=== PATIENT | female | born 1935 | race Caucasian/White ===

== ENCOUNTER 2016-08-26 12:48 | Inpatient (IN) | payer MEDICARE, OTHER ==
[~2016-08-26] VITALS: Ht 170.2 cm; Wt 64.2 kg
[2016-08-26 13:25] VITALS: BP 138/78; BMI 21.8
--- NOTE | 2016-08-26 14:16 | NUR ---
PT ADMITTED. I ATTEMPTED TO SITE PT X1 STICK. ROBIN ATTEMPTED TO SITE X4 STICK. CALLED VASCULAR NURSE SANGEETA TO SITE PT.
--- NOTE | 2016-08-26 14:38 | NUR ---
IV access-22 gauge in right hand for IV access. Zuleyma Bennett RN
[2016-08-26 14:40] LABS: ANION GAP 9.7 mmol/L (8-16); BILIRUBIN - DIRECT 0.11 mg/dL (0.00-0.30); BILIRUBIN - INDIRECT 0.28 mg/dL (0.00-1.00); BILIRUBIN - TOTAL 0.39 mg/dL (0.2-1.3); CALCIUM 8.9 mg/dL (8.5-10.1); CARBON DIOXIDE 31.6 mmol/L (21.0-32.0); CREATININE - SERUM 0.9 mg/dL (0.6-1.3); POTASSIUM - SERUM 3.3 mmol/L (3.5-5.1); PROTEIN - SERUM 7.1 g/dL (6.4-8.2)
[2016-08-26 15:06] LABS: BASOPHILS 0.3 % (0.0-2.0); EOSINOPHILS 0.1 % (0-7); HEMATOCRIT 40.3 % (36.0-48.0); HEMOGLOBIN 12.7 g/dL (12-16); IMMATURE GRANULOCYTES 0.1 % (0-5); LYMPHOCYTES 17.2 % (15-50); MCH 28.8 pg (26.0-34.0); MCHC 31.5 g/dL (31.0-37.0); MCV 91.4 fL (80.0-100.0); MEAN PLATELET VOLUME 10.7 fL (7.4-10.4); MONOCYTES 14.9 % (2-11); NEUTROPHILS 67.4 % (40-80); PLATELET COUNT 251 10x3/uL (130-400); RBC 4.41 10x6/uL (4.00-5.40); WBC 7.4 10x3/uL (4.8-10.8)
--- NOTE | 2016-08-26 15:07 | NUR ---
SANGEETA QUICK NURSE SITED PT TO R HAND. FLUIDS WERE WRITTEN WITH ADMIT ORDERS NS @88ML/HR. I HAVE THEM HANGING AND INFUSING NOW. PHARMACY HAS STILL NOT PUT IN PT MEDICATIONS THAT HAVE BEEN ORDERED.
[2016-08-26 15:58] VITALS: BP 124/56
[2016-08-26] MEDS ORDERED: NORVASC5 MG PO (17:41)
[2016-08-26] MEDS ORDERED: COREG 3.1253.125 MG PO (17:42)
[2016-08-26] MEDS ORDERED: KEPPRA500 MG PO (17:42)
[2016-08-26] MEDS ORDERED: ZOLOFT50 MG PO (17:42)
[2016-08-26] MEDS ORDERED: TENORETIC 50 TA1 TAB PO (17:42)
--- NOTE | 2016-08-26 17:42 | NUR ---
Patient Name: LIA GREER Admission Status: Urgent Accout number: [id number] Admission Date: 08-26-2016 : 1935 Admission Diagnosis: Attending: ALVA Current LOS: 1 Anticipated DC Date: Planned Disposition: Primary Insurance: MEDICARE A & B Discharge Planning Comments: CM met with patient and patient's daughter "Maki" ([phone]) at bedside. Patient states she resides in her own two story home. She has 13 stairs but also a lift so she does not use stairs. Daughter also states she has a walker, cane, shower chair, BCS and needs no additional DME supplies. Patient's daughter states she has [facility] in addition to various family members for round the clock care at home. Patient's daughter also stated the patient has recently completed her home health per services of [facility]. Both the patient and daughter state her home is safe to return to. The patient's daughter "Maki Mcbride" ([phone]) will be her transportation home. CM will follow and assist with discharge plans/needs. Room Cooler Installer: Octavia Hernandez RN/CM * Is the patient Alert and Oriented? Yes 0 * How many steps to enter\\exit or inside your home? 13 + LIFT 0 * PCP DEE 0 * [facility] [phone] 0 * Preadmission Environment Home with Family 0 * ADLs Partial Dependent 0 * Partial ADLs (Assistance needed) Ambulation Medication Management 0 * Equipment Bedside Commode Cane Elevated [place] Seat Shower Chair Walker 0 * List name and contact numbers for known caregivers / representatives who currently or will assist patient after discharge: Maki Mcbride (daughter) ([phone]) Ross Horton (son) ([phone]) 0 * Community resources currently utilized Other 0 * Please name any agencies selected above. [facility] (Previously used [facility]) 0 * Additional services required to return to the preadmission environment? No 0 * Can the patient safely return to the preadmission environment? Yes 0 * Has this patient been hospitalized within the prior 30 days at any hospital? Yes 0
[2016-08-26 19:48] VITALS: BP 136/70
--- NOTE | 2016-08-26 19:55 | NUR ---
ASSESSMENT COMPELTE, A&O, DENIES PAIN OR NEEDS, BED LOW, CL IN REACH.
--- NOTE | 2016-08-26 21:32 | NUR ---
HS MEDS GIVEN, PT DENIES PAIN OR NEEDS, BED LOW, CL IN REACH. UP WITH ASSIST TO BR.
--- NOTE | 2016-08-26 21:50 | NUR ---
STOOL SPECIMEN COLLECTED AND TAKEN TO LAB.
--- NOTE | 2016-08-26 23:25 | NUR ---
LAB RESULTED NEGATIVE RESULTS FOR CDT.
[2016-08-27 00:47] VITALS: BP 142/71
[2016-08-27 03:41] VITALS: BP 147/80
[2016-08-27 05:18] LABS: BASOPHILS 0.2 % (0.0-2.0); EOSINOPHILS 1.3 % (0-7); HEMATOCRIT 36.4 % (36.0-48.0); HEMOGLOBIN 11.3 g/dL (12-16); IMMATURE GRANULOCYTES 0.4 % (0-5); LYMPHOCYTES 22.5 % (15-50); MCH 28.3 pg (26.0-34.0); MCV 91.2 fL (80.0-100.0); MEAN PLATELET VOLUME 10.2 fL (7.4-10.4); MONOCYTES 21.2 % (2-11); NEUTROPHILS 54.4 % (40-80); PLATELET COUNT 217 10x3/uL (130-400); RBC 3.99 10x6/uL (4.00-5.40); RDW 16.1 % (11.5-14.5)
[2016-08-27 05:23] LABS: WBC 5.5 10x3/uL (4.8-10.8)
[2016-08-27 05:38] LABS: ALBUMIN 2.5 g/dL (3.4-5.0); BILIRUBIN - TOTAL 0.28 mg/dL (0.2-1.3); CALCIUM 8.5 mg/dL (8.5-10.1); CREATININE - SERUM 0.8 mg/dL (0.6-1.3); PROTEIN - SERUM 6.3 g/dL (6.4-8.2)
[2016-08-27 08:16] VITALS: BP 121/70
--- NOTE | 2016-08-27 10:43 | NUR ---
PT WAS OFFERED AND REFUSED SCDS. PT DOES GET UP WITH ASSISTANCE TO BR. TEACHING DONE AND PT VERBALIZED UNDERSTANDING. NO FURTHER NEEDS. WILL CPOC.
[2016-08-27 12:21] VITALS: BP 130/70
--- NOTE | 2016-08-27 15:41 | NUR ---
INITIATED PTS IVPB FLAGYL INFUSING VIA R.WRIST PIV WITH DRSG CDI AND SWAB CAPS IN USE. PT IS VISITING FAMILY IN ROOM. RR NONLABORED ON RA. PT DENIES ANY CURRENT PAIN OR FURTHER NEEDS. CL IN REACH. WILL CTM.
[2016-08-27 15:53] VITALS: BP 136/70; BP 154/76
--- NOTE | 2016-08-27 18:41 | NUR ---
IN/OUT CATH PERFORMED USING STERILE TECHNIQUE. SPECIMEN COLLECTED AND SENT TO LAB.
[2016-08-27 18:48] LABS: APPEARANCE CLOUDY (CLEAR); BILIRUBIN NEGATIVE (NEGATIVE); COLOR YELLOW (YELLOW); GLUCOSE NEGATIVE (NEGATIVE); KETONE NEGATIVE (NEGATIVE); LEUKOCYTE ESTERASE TRACE (NEGATIVE); NITRITE POSITIVE (NEGATIVE); PROTEIN 2+ mg/dL (NEGATIVE); SPECIFIC GRAVITY 1.015 (1.005-1.020); UROBILINOGEN NORMAL (NORMAL)
[2016-08-27 18:52] LABS: BACTERIA MANY /hpf (NONE SEEN); EPITHELIAL CELLS 0-5 /hpf (0-5); RED CELLS - URINE 0-5 /hpf (0-5)
--- NOTE | 2016-08-27 19:20 | NUR ---
RECEIVED REPORT, CONTACT-ISO, IV-R WRIST-NS @ 88, A&O, UP WITH ASSIST, CALL LIGHT IN REACH, BED IS LOW, SRX2, WILL CONTINUE TO MONITOR
[2016-08-27 21:17] VITALS: BP 136/67
--- NOTE | 2016-08-28 00:33 | NUR ---
PT AWAKE; DENIES ANY DISCOMFORT. SR UP X2, CALL LIGHT WITHIN REACH.
[2016-08-28 02:01] VITALS: BP 151/67
[2016-08-28 05:48] VITALS: BP 144/69
[2016-08-28 06:24] LABS: BASOPHILS 0.7 % (0.0-2.0); EOSINOPHILS 1.5 % (0-7); HEMATOCRIT 34.7 % (36.0-48.0); HEMOGLOBIN 10.9 g/dL (12-16); LYMPHOCYTES 26.7 % (15-50); MCH 28.3 pg (26.0-34.0); MCHC 31.4 g/dL (31.0-37.0); MCV 90.1 fL (80.0-100.0); MEAN PLATELET VOLUME 10.5 fL (7.4-10.4); MONOCYTES 19.6 % (2-11); NEUTROPHILS 51.5 % (40-80); PLATELET COUNT 208 10x3/uL (130-400); RBC 3.85 10x6/uL (4.00-5.40); RDW 15.8 % (11.5-14.5); WBC 4.5 10x3/uL (4.8-10.8)
[2016-08-28 06:38] LABS: ALBUMIN 2.4 g/dL (3.4-5.0); ALKALINE PHOSPHATASE 55 U/L (46-116); ALT (SGPT) 16 U/L (10-68); CALC OSMOLALITY 276 mosm/kg (275-300); CALCIUM 8.5 mg/dL (8.5-10.1); CARBON DIOXIDE 28.4 mmol/L (21.0-32.0); CHLORIDE - SERUM 104 mmol/L (98-107); CREATININE - SERUM 0.7 mg/dL (0.6-1.3); GLUCOSE 88 mg/dL (74-106); PROTEIN - SERUM 5.9 g/dL (6.4-8.2); SODIUM 140 mmol/L (136-145); eGFR NON AFRICAN AMERICAN 85 mL/min (90-120)
[2016-08-28 06:39] LABS: UREA NITROGEN 10 mg/dL (7-18)
--- NOTE | 2016-08-28 08:30 | NUR ---
PT RESTING QUIETLY IN BED DRINKING BREAKFAST. RR NONLABORED ON RA. SHIFT ASSESSMENT COMPLETED. PT IS ALERT AND ORIENTED DENIES ANY CURRENT PAIN. INITIATED PTS IVPB ANBX INFUSING VIA R.WRIST PIV WITH DRSG CDI AND SWAB CAPS IN USE. PT DENIES ANY CURRENT PAIN OR FURTHER NEEDS. CL IN REACH. WILL CPOC.
[2016-08-28 08:44] VITALS: BP 147/74
[2016-08-28 13:13] VITALS: BP 146/79
[2016-08-28 17:01] VITALS: BP 161/82
--- NOTE | 2016-08-28 19:20 | NUR ---
RESUMED CARE OF PT, NEEDS CONSENT SIGNED FOR FLEX. SIG. WITH TIVA, IV-R.WRIST-NS@ 75, DENIES ANY NEEDS, CALL LIGHT IN REACH, BED IS LOW,SRX2, WILL CONTINUE TO MONITOR
[2016-08-28 21:30] VITALS: BP 156/83
--- NOTE | 2016-08-28 23:49 | NUR ---
REAL ESTATE TRANSACTION COORDINATOR AT BEDSIDE TO OBTAIN VITALS, CALL LIGHT IN REACH. WILL CONTINUE TO MONITOR.
[2016-08-29 00:45] VITALS: BP 151/76
--- NOTE | 2016-08-29 02:24 | NUR ---
SLEEPING, PT HAS BEEN NPO SINCE MIDNIGHT, BED IS LOW, SRX2, CALL LIGHT IN REACH
[2016-08-29 04:30] VITALS: BP 148/85
--- NOTE | 2016-08-29 07:36 | NUR ---
AM ROUNDING- PT IN BATHROOM CURRENTLY. UP AD HOLLY. IN CONTACT ISOLATION FOR C.DIFF. PER REPORT FROM TRAFFIC SURVEY TECHNICIAN NURSE MINH, PT HAD SOFT BM LAST NIGHT ON TRAFFIC SURVEY TECHNICIAN. ON ROOM AIR. NO MONITOR. IV SEEN TO RIGHT WRIST WITH NS RUNNING AT 75CC. PT IS NPO FOR PROCEDURE TODAY. CONSENTS ARE SIGNED AND IN CHART. PTS POTASSIUM IS 3.0 THIS AM, WILL LET DRChacho KNOW. NO NEED AT CURRENT TIME. WILL CONTINUE TO MONITOR.
[2016-08-29 08:00] VITALS: BP 151/81
[2016-08-29 08:46] LABS: BASOPHILS 1.7 % (0.0-2.0); EOSINOPHILS 1.2 % (0-7); HEMATOCRIT 37.6 % (36.0-48.0); HEMOGLOBIN 12.1 g/dL (12-16); IMMATURE GRANULOCYTES 0.2 % (0-5); LYMPHOCYTES 26.1 % (15-50); MCH 28.2 pg (26.0-34.0); MCHC 32.2 g/dL (31.0-37.0); MEAN PLATELET VOLUME 10.4 fL (7.4-10.4); MONOCYTES 15.3 % (2-11); NEUTROPHILS 55.5 % (40-80); PLATELET COUNT 219 10x3/uL (130-400); RBC 4.29 10x6/uL (4.00-5.40); RDW 15.4 % (11.5-14.5)
[2016-08-29 08:50] LABS: MCV 87.6 fL (80.0-100.0); WBC 6.6 10x3/uL (4.8-10.8)
[2016-08-29 08:55] LABS: ALBUMIN 2.6 g/dL (3.4-5.0); ALKALINE PHOSPHATASE 58 U/L (46-116); ALT (SGPT) 16 U/L (10-68); CALC OSMOLALITY 276 mosm/kg (275-300); CALCIUM 8.5 mg/dL (8.5-10.1); CARBON DIOXIDE 29.5 mmol/L (21.0-32.0); CHLORIDE - SERUM 104 mmol/L (98-107); CREATININE - SERUM 0.7 mg/dL (0.6-1.3); GLUCOSE 94 mg/dL (74-106); PROTEIN - SERUM 6.6 g/dL (6.4-8.2); SODIUM 140 mmol/L (136-145); UREA NITROGEN 8 mg/dL (7-18); eGFR NON AFRICAN AMERICAN 85 mL/min (90-120)
[2016-08-29 08:56] LABS: POTASSIUM - SERUM 3.6 mmol/L (3.5-5.1)
--- NOTE | 2016-08-29 09:18 | NUR ---
PAGED DR. ABDUL OFFICE TO INFORM HIM OF PTS POTASSIUM BEING 3.0. NURSE STATED SHE WOULD LET HIM KNOW. AWAITING CALLBACK.
[2016-08-29 12:00] VITALS: BP 148/77
--- NOTE | 2016-08-29 15:42 | NUR ---
GREGORIO FROM GI LAB CALLED TO STATE TO GO AHEAD AND PRE-OP PT WITH PEPCID. STATED I WOULD DO SO. GREGORIO FROM GI LAB STATED SHE WOULD BE HERE IN 30 MINUTES OR SO. WILL CONTINUE TO MONITOR.
--- NOTE | 2016-08-29 15:58 | NUR ---
GAVE PT PRE-OP MEDICAION ORDERED (PEPCID). WILL CONTINUE TO MONITOR.
[2016-08-29 16:00] VITALS: BP 152/80
--- NOTE | 2016-08-29 16:19 | NUR ---
GREGORIO FROM GI LAB, HERE TO GET PT FOR PROCEDURE.
--- NOTE | 2016-08-29 16:46 | NUR ---
1620- PT TO LAB VIA WHEELCHAIR.
--- NOTE | 2016-08-29 18:03 | NUR ---
PT IS CURRENTLY STILL AT GI LAB FOR PROCEDURE.
--- NOTE | 2016-08-29 18:12 | NUR ---
TALKED TO GREGORIO FROM GI LAB STATED PT IS COMING BACK TO UNIT AND CAN RESUME REGULAR DIET. AWAITING PT TO ARRIVE.
--- NOTE | 2016-08-29 18:39 | NUR ---
1830- PT BACK FROM PROCEDURE (GI LAB) VIA STRETCHER. GI LAB STATED THAT PT CAN BE TAKEN OFF ISOLATION. WILL CONTINUE TO MONITOR.
--- NOTE | 2016-08-29 19:15 | NUR ---
RESTING QUIETLY NAD NOTED
--- NOTE | 2016-08-29 19:30 | NUR ---
RECEIVED REPORT, PT EATING DINNER, 02-ROOM AIR, IV-R.WRIST-NS@ 88, DENIES ANY NEEDS, CALL LIGHT IN REACH, BED IS LOW, SRX2, WILL CONTINUE TO MONITOR
[2016-08-29 20:03] VITALS: BP 144/79
[2016-08-30 01:37] VITALS: BP 137/78
--- NOTE | 2016-08-30 03:49 | NUR ---
SLEEPING, SRX2, CALL LIGHT IN REACH, BED IS LOW, WILL CONTINUE TO MONITOR
[2016-08-30 04:19] VITALS: BP 159/85
[2016-08-30 05:14] LABS: BASOPHILS 0.6 % (0.0-2.0); EOSINOPHILS 0.7 % (0-7); HEMATOCRIT 35.3 % (36.0-48.0); HEMOGLOBIN 11.4 g/dL (12-16); IMMATURE GRANULOCYTES 0.2 % (0-5); LYMPHOCYTES 22.6 % (15-50); MCH 28.5 pg (26.0-34.0); MCHC 32.3 g/dL (31.0-37.0); MCV 88.3 fL (80.0-100.0); MEAN PLATELET VOLUME 9.9 fL (7.4-10.4); MONOCYTES 10.4 % (2-11); NEUTROPHILS 65.5 % (40-80); PLATELET COUNT 202 10x3/uL (130-400); RDW 15.3 % (11.5-14.5)
--- NOTE | 2016-08-30 05:19 | NUR ---
R.WRIST IV REMOVED, IV RESTARTED IN R.FOREARM, PT DENIES ANY NEEDS AT THIS TIME, CALL LIGHT IN REACH
[2016-08-30 05:23] LABS: WBC 8.3 10x3/uL (4.8-10.8)
[2016-08-30 05:33] LABS: ALBUMIN 2.5 g/dL (3.4-5.0); BILIRUBIN - TOTAL 0.5 mg/dL (0.2-1.3); CALCIUM 8.3 mg/dL (8.5-10.1); CARBON DIOXIDE 29.4 mmol/L (21.0-32.0); PROTEIN - SERUM 6.5 g/dL (6.4-8.2)
[2016-08-30 05:49] LABS: ANION GAP 10.3 mmol/L (8-16); CREATININE - SERUM 0.9 mg/dL (0.6-1.3); POTASSIUM - SERUM 2.7 mmol/L (3.5-5.1)
--- NOTE | 2016-08-30 05:58 | NUR ---
RECIEVED CRITICAL LAB FROM GALLO IN LAB, K+ 2.7, NOTIFIED MINH VANCE.
--- NOTE | 2016-08-30 07:41 | HP ---
PATIENT: LIA GREER MEDICAL RECORD: [id number] ACCOUNT: [id number] LOCATION:[facility] D.2137 : 35 ADMISSION DATE: 08/26/16 HISTORY AND PHYSICAL EXAMINATION HISTORY OF PRESENT ILLNESS: An 81-year-old female who presented to the ER last night with persistent nausea and vomiting, had extensive findings on the CT, was afebrile with a normal white count, was discharged to home. She has a history of recurrent C. diff. She is on oral vancomycin 30-day period at home. Daughter reports she is unable to keep anything down and has thrown up twice today. PAST MEDICAL HISTORY: Significant for hypertension, overactive bladder, anxiety, hyperlipidemia, UTIs and unclear history of seizure disorder. She has been placed on antiepileptics by neurologist from [facility]. ALLERGIES: CORTISONE. CURRENT MEDICATIONS: Amlodipine 5 mg daily, carvedilol 3.125 mg b.i.d., levetiracetam 500 mg b.i.d., sertraline 50 mg daily, Toviaz 4 mg daily and oral vancomycin 250 mg p.o. q.i.d. FAMILY HISTORY: Father, blood clot in the brain. Mother at age 97 of old age. SOCIAL HISTORY: Never smoked. Twelfth grade education. Rare wine. PAST SURGICAL HISTORY: Knee replacement, left; cholecystectomy, appendectomy and hysterectomy. REVIEW OF SYSTEMS: GENERAL: Loss of appetite with the illness that has been progressive for the past several days, progressively worse, known weight loss, she is down to 139 pounds. This is down from recent visits. HEENT: Denies tinnitus, visual changes. Denies dysphagia. CARDIOVASCULAR: Denies chest pain or palpitations. PULMONARY: Denies hemoptysis. Denies night sweats. GASTROINTESTINAL: Admits nausea, vomiting and diarrhea. History as above. GENITOURINARY: Admits to frequency, although decreased output. MUSCULOSKELETAL: No acute changes other than generalized weakness with the acute illness. ENDOCRINE: Denies polyuria, polydipsia, or polyphagia. IMAGING: CT from yesterday at [facility] shows fluid filling of small bowel to a lesser degree proximal colon, no prominent distention, suggestive of ileus or enteritis, distal colonic diverticulosis, also some haziness around the proximal sigmoid colon that could represent residual diverticulitis, left ovarian cyst approximately 3 cm, 2.8 cm abdominal aortic aneurysm, bilateral renal cysts, question of thickening of the left renal pelvis that could represent an infectious process or less likely residual from opacity of stone, and question of bladder wall thickening, which could represent an infectious process. PHYSICAL EXAMINATION: VITAL SIGNS: Weight 139. Blood pressure is 138/86, heart rate 72, respirations HISTORY AND PHYSICAL [id number] ZOEY,LIA G 18 and temperature 97.8. GENERAL: Alert, oriented. Generalized weakness, limited ambulation with assistance. HEENT: Normocephalic and atraumatic. Eyes: Pupils are equally round and reactive to light and accommodation. Extraocular muscles are intact. Conjunctivae not injected. Ears: Canals are patent, TMs are intact. Nose: Nares patent without drainage. Throat: No erythema, no exudates. NECK: Supple. No lymphadenopathy. No JVD. HEART: Regular rate and rhythm. LUNGS: Clear to auscultation bilaterally. Breathing is nonlabored. ABDOMEN: Soft, nontender, with mild diffuse tenderness, greater at the left lower quadrant. No rebound or guarding. No palpable masses. EXTREMITIES: Present times 4. No edema. NEUROLOGIC: No focal deficits, somewhat limited historian, family present. ASSESSMENT AND PLAN: Acute diverticulitis, urinary tract infection with CT changes as noted above, history of Clostridium difficile colitis, nausea, vomiting, diarrhea, hypertension and seizure disorder. Home meds were restarted. IV fluids with normal saline at 88 mL an hour liters. Clear liquid diet. Stool for C. diff. UA, urine C&S records from [facility] ER to chart. CBC, chemistry, LFTs, amylase and lipase on admission. We will consult GI, Dr. Perez, who had seen her before. Consult infectious disease, Dr. Mckeon. Continue vancomycin 250 mg p.o. q.i.d. and Zofran 4 mg IV q.6 hours p.r.n. nausea and vomiting. Routine vital signs. Supportive care. TRANSINT:[id number] Voice Confirmation ID: [id number] DOCUMENT ID: [id number] STEPHANIE PRICE DO at 0741 CC: [id number] DICTATION DATE: 08/26/16 1602 CAMERA STORAGE CLERK: 08/26/16 1819 ADM IN [facility] [address] [id number]
[2016-08-30 08:06] VITALS: BP 150/88
[2016-08-30 11:22] VITALS: Ht 170.2 cm; Wt 64.2 kg
[2016-08-30 12:01] VITALS: BP 161/81
[2016-08-30 16:14] VITALS: BP 153/82
--- NOTE | 2016-08-30 17:59 | OP ---
PATIENT NAME: LIA SHOOK MEDICAL RECORD: [id number] :35 LOCATION:D.M2 D.2137 ADMISSION DATE:08/26/16 SURGEON: BUZZ ZAMORANO MD DATE OF OPERATION: 08/29/2016 PROCEDURE: Flexible sigmoidoscopy with biopsy. ATTENDING PHYSICIAN: Dio Degroot DO INFECTIOUS DISEASE: Courtney Mckeon MD INDICATIONS: Ms. Shook is a pleasant 81-year-old woman with a history of Clostridium difficile with frequent recurrences in the past, was admitted secondary to symptoms of nausea, vomiting, diarrhea and abdominal pain. Her stool for CDT is negative. She has been empirically started on IV Flagyl and oral vancomycin. Shortly after admission, her nausea, vomiting, diarrhea has ceased. She presents for inpatient flexible sigmoidoscopy. PREMEDICATIONS: Total IV anesthesia (propofol 80 mg). INSTRUMENT: Olympus video colonoscope. PROCEDURE AND FINDINGS: After receiving informed consent, Ms. Shook was placed in left lateral decubitus position and sedated as per anesthesia. After achieving adequate level of sedation, digital rectal exam was performed that showed no external hemorrhoidal tags, fissures or fistulas, decreased sphincter tone, no palpable rectal masses. The colonoscope was introduced per rectally and advanced to 40 cm without difficulty. There was thick liquid stool scattered throughout the left colon. There were no pseudomembranes noted. There was minimal patchy erythema in the sigmoid colon and biopsies were obtained. Multiple diverticula were seen scattered throughout the sigmoid colon, but no particular diverticulum appeared inflamed. Retroflexion in the rectum showed moderate internal hemorrhoids. Ms. Shook tolerated the procedure well, no immediate complications. ASSESSMENT: 1. Minimal nonspecific colitis may be prep related, status post sigmoid biopsy. 2. Moderate diverticulosis coli. 3. Moderate internal hemorrhoids. RECOMMENDATIONS: 1. Follow up histopathology. 2. Advance diet. TRANSINT:[id number] Voice Confirmation ID: [id number] DOCUMENT ID: [id number] BUZZ ZAMORANO MD at 1754 CC: STEPHANIE PRICE DO [id number] DICTATION DATE: 08/29/16 1808 SLOT OPERATIONS MANAGER: 08/29/16 [place] [address]
--- NOTE | 2016-08-30 19:44 | NUR ---
RESUMED CARE OF PT, IV-RFA-NS@ 75, PT WATCHING TV, DENIES ANY NEEDS, CALL LIGHT IN REACH, WILL CONTINUE TO MONITOR
--- NOTE | 2016-08-30 19:52 | NUR ---
Rehab Note- Rehab Prescreen Order Received. Will follow patient at this time. Thank you for this referral! Joanna Zepeda RN Clinical Liaison, Rehab Care/Jane
[2016-08-30 20:09] VITALS: BP 156/81
[2016-08-31 01:22] VITALS: BP 170/90
[2016-08-31 05:29] LABS: BASOPHILS 0.3 % (0.0-2.0); EOSINOPHILS 1.9 % (0-7); HEMATOCRIT 35.5 % (36.0-48.0); HEMOGLOBIN 11.3 g/dL (12-16); IMMATURE GRANULOCYTES 0.1 % (0-5); LYMPHOCYTES 21.3 % (15-50); MCH 28.1 pg (26.0-34.0); MCHC 31.8 g/dL (31.0-37.0); MCV 88.3 fL (80.0-100.0); MEAN PLATELET VOLUME 10.1 fL (7.4-10.4); MONOCYTES 12.9 % (2-11); NEUTROPHILS 63.5 % (40-80); PLATELET COUNT 202 10x3/uL (130-400); RBC 4.02 10x6/uL (4.00-5.40); RDW 15.5 % (11.5-14.5); WBC 7.9 10x3/uL (4.8-10.8)
[2016-08-31 05:31] LABS: CALC OSMOLALITY 279 mosm/kg (275-300); CARBON DIOXIDE 29.5 mmol/L (21.0-32.0); CHLORIDE - SERUM 105 mmol/L (98-107); CREATININE - SERUM 0.7 mg/dL (0.6-1.3); GLUCOSE 104 mg/dL (74-106); SODIUM 141 mmol/L (136-145); UREA NITROGEN 10 mg/dL (7-18); eGFR NON AFRICAN AMERICAN 85 mL/min (90-120)
[2016-08-31 05:56] LABS: POTASSIUM - SERUM 2.9 mmol/L (3.5-5.1)
[2016-08-31 06:27] VITALS: BP 148/82
--- NOTE | 2016-08-31 07:45 | NUR ---
PT RECEIVED AWAKE, ALERT, AND ORIENTED, SITTING UP IN BED EATING BREAKFAST. NO ACUTE DISTRESS NOTED AT THIS TIME. DENIES NEEDS AT THIS TIME. BED LOW. PHONE AND CALL LIGHT IN REACH. SIDE RAILS UP X2.
[2016-08-31] MEDS ORDERED: FLORAJEN3 CAPS460 MG PO (07:50)
[2016-08-31] MEDS ORDERED: VANCOMYCIN250 MG/51 PO (07:51)
[2016-08-31] MEDS ORDERED: FLAGYL500 MG PO (07:52)
[2016-08-31] MEDS ORDERED: MAG-OX 400 MG400 MG PO (07:53)
[2016-08-31] MEDS ORDERED: KLOR-CON 1010 MEQ PO (07:54)
[2016-08-31 08:00] VITALS: BP 146/86
--- NOTE | 2016-08-31 08:05 | NUR ---
PT SITTING UP IN BED AWAKE, ALERT, AND ORIENTED. ADMINISTERED KCL 20 MEQ PER ORDERS MIXED WITH ORANGE JUICE AND COREG PO. ASSESSMENT COMPLETED. IV NOTED TO RIGHT FOREARM INFUSING NS @ 75 CC/HR. PATENT. K+ 2.9 @ 0600. HEART RRR. LUNG SOUNDS CLEAR BILATERALLY. BOWEL SOUNDS ACTIVE X4 QUADRENTS. PT DENIES NEEDS AT THIS TIME. BED LOW. PHONE AND CALL LIGHT IN REACH. SRX2.
--- NOTE | 2016-08-31 09:54 | NUR ---
AM MEDS GIVEN. PT REQUESTS ICE WATER. DENIES OTHER NEEDS AT THIS TIME. BED LOW. PHONE AND CALL LIGHT IN REACH. SIDE RAILS UP X2.
--- NOTE | 2016-08-31 10:15 | NUR ---
PT SITTING UP IN BED WATCHING TV. ADMINISTERED KCL 20 MEQ SOLUTION MIXED WITH APPLE JUICE. PT DENIES NEEDS AT THIS TIME. BED LOW. PHONE AND CALL LIGHT IN REACH. SIDE RAILS UP X2.
--- NOTE | 2016-08-31 10:35 | NUR ---
ADMINISTERED KCL 20 MEQ PER ORDERS. ORDERED POTASSIUM LAB FOR 1400 PER ORDERS. WILL CONTINUE TO MONITOR PT
--- NOTE | 2016-08-31 10:57 | NUR ---
PT SITTING UP IN BED. ADMINSITERED SARAH BAILEY. PT STATES SHE FEELS LIKE SHE WET HERSELF AND THE BED . ASSISTED PT TO CHAIR AND CHANGED GOWN, BED LINENS, AND BRIEF. ASSISTED PT TO RESTROOM TO VOID AND THEN BACK TO THE CHAIR. DENIES NEEDS AT THIS TIME. BED LOW. PHONE AND CALL LIGHT IN REACH. SIDE RAILS UP X2.
--- NOTE | 2016-08-31 11:03 | NUR ---
Reviewed patient's chart this AM for inpatient rehab. According to the PT notes she is able to ambulate with little to no assistance. She is to high functioning for acute inpatient rehab at this time. Liz Aggarwal RN Clinical Liaison, Rehab
--- NOTE | 2016-08-31 11:32 | NUR ---
Patient Name: LIA GREER Encounter No: [id number] : 1935 Primary Insurance: MEDICARE A & B Anticipated DC Date: 08-31-2016 Planned Disposition: Inpatient Rehab External Planned Provider: [facility] DCP follow-up note: CM SPOKE TO PT IN ROOM TO DISCUSS DISCHARGE PLANNING AND NEEDS. PT IS STILL REQUESTING INPATIENT REHAB AT [facility]. IF DENIED INPATIENT, PT WOULD LIKE TO GO HOME WITH [facility]. IMPORTANT MESSAGE FROM MEDICARE PROVIDED AND EXPLAINED. CM CALLED AND SPOKE TO ROYA OF [facility] WHO WILL SCREEN PT FOR ADMISSION. CM WAITING ADMISSION DETERMINATION FROM [facility]. Osmin Rene, CASE MANAGEMENT
[2016-08-31 11:42] VITALS: BP 140/80
--- NOTE | 2016-08-31 12:32 | NUR ---
PT REQUESTED TO GET BACK IN BED AND ASKED FOR ANOTHER PILLOW. ASSISTED PT BACK TO BED AND PLACED EXTRA PILLOW BEHIND PTS HEAD. DENIES FURTHER NEEDS. BED LOW. PHONE AND CALL LIGHT IN REACH. SIDE RAILS UP X2.
--- NOTE | 2016-08-31 12:38 | NUR ---
PT C/O OF RIGHT ANKLE HURTING. RIGHT ANKLE SLIGHTLY SWOLLEN AND TENDER, APPLIED ICE PACK TO RIGHT ANKLE. DENIES OTHER NEEDS. BED LOW. PHONE AND CALL LIGHT IN REACH. SIDE RAILS UP X2.
--- NOTE | 2016-08-31 12:47 | NUR ---
Patient Name: LIA GREER Encounter No: [id number] : 1935 Primary Insurance: MEDICARE A & B Anticipated DC Date: 08-31-2016 Planned Disposition: Home with Home Health External Planned Provider: better. [facility] DCP follow-up note: CM RECEIVED MESSAGE FROM [facility] INPATIENT REHAB SCREENER, PT WAS DECLINED BY INPATIENT REHAB. CM SPOKE TO PT IN ROOM WHO REPORTS THAT SHE WILL GO HOME WITH [facility]. CM DISCUSSED PENITENTIARY REHAB, PT REPORTS SHE HAS BEEN TO A FACILITY IN THE PAST AND DOES NOT WANT TO GO BACK AT THIS TIME. PT FEELS SHE IS SAFE TO GO HOME WITH HOME HEALTH THERAPY AND REPORTS HER GRANDDAUGHTER IN LAW WILL BE WITH HER IN THE MORNINGS AND A HIRED CAREGIVER IN THE EVENINGS UNTIL PT GOES TO BED. CHOICE SIGNED FOR [facility], PT REPORTS HER SON IN LAW WILL PICK HER UP WHEN SHE CALLS. CM CALLED [facility], , PROVIDED REFERRAL TO [facility] WHO REPORTS PT WAS RECENTLY ACTIVE WITH THEM AND THEY WILL ACCEPT PT BACK FOR HOME HEALTH ADMISSION ON MONDAY; CM SPOKE TO PT WHO AGREES WITH MONDAY ADMISSION BY [facility] AND DOES NOT WANT CM TO CALL ANOTHER COMPANY THAT MAY SEE HER SOONER. CM FAXED REFERRAL TO [facility] AT [phone]. [employer]ER NOTIFIED. NO FURTHER DISCHARGE NEEDS IDENTIFIED. Osmin Rene, CASE MANGEMENT
--- NOTE | 2016-08-31 13:18 | NUR ---
PT RESTING QUIETLY WITH EYES CLOSED, AROUSED EASILY. DENIES NEEDS AT THIS TIME. BED LOW. PHONE AND CALL LIGHT IN REACH. SIDE RAILS UP X2.
--- NOTE | 2016-08-31 14:36 | NUR ---
PT SITTING UP IN BED WATCHING TV. REMOVED IV, CATHETER TIP INTACT. DISCUSSED DISCHARGE INSTRUCTIONS WITH PT. INCLUDED: PRESCRIPTION DIRECTIONS, FOLLOW-UP APPOINTMENT, AND SIGNS/SYMPTOMS OF INFECTION TO WATCH FOR. PRESCRIPTIONS GIVEN. PT VERBALIZED UNDERSTANDING.
--- NOTE | 2016-08-31 15:02 | NUR ---
PT LYING IN BED ON BACK RESTING QUIETLY. AROUSED EASILY. ADMINISTERED FLAGYL PO. PT DENIES NEEDS AT THIS TIME. BED LOW. PHONE AND CALL LIGHT IN REACH. SIDE RAILS UP X2.
--- NOTE | 2016-08-31 16:01 | NUR ---
PT UP TO RESTROOM USING WALKER TO AMBULATE.
--- NOTE | 2016-08-31 16:10 | NUR ---
PT DISCHARGED HOME VIA WHEELCHAIR TO AWAITING VEHICLE. ACCOMPANIED BY COPYRIGHT MANAGER.
--- NOTE | 2016-09-03 10:00 | DS ---
PATIENT:LIA GREER :35 MEDICAL RECORD: [id number] DISCHARGE SUMMARY ADMISSION DATE: 08/26/16 DISCHARGE DATE: 08/31/16 DATE OF ADMISSION: 08/26/2016 DATE OF DISCHARGE: 08/31/2016 ADMISSION DIAGNOSES: Acute diverticulitis, urinary tract infection, history of recurrent Clostridium difficile colitis with presumptive Clostridium difficile diverticulitis, nausea, vomiting, diarrhea, hypertension, seizure disorder, controlled with medications, also had an abnormal CT previous night in the Emergency Room at [facility], but was discharged to home. DISCHARGE DIAGNOSES: Diverticulitis, colonization Escherichia coli urinary tract asymptomatic, recurrent Clostridium difficile colitis, seizure disorder, controlled on medications; dementia, chronic, stable; hypertension controlled with medications. CONSULTS: Dr. Perez, GI; Dr. Mckeon, Infectious Disease. PROCEDURES: Flexible sigmoidoscopy, which showed minimal patchy erythema sigmoid colon, multiple diverticula, moderate internal hemorrhoids. No other significant findings. Pathology from biopsy is pending. HOSPITAL COURSE: The patient was admitted from the clinic with frequent diarrhea, nausea, vomiting. She had been seen at [facility] ER the previous night, CT was obtained and then she was sent home. She had been on oral vancomycin. partial way through a 30-day course for recurrent C. diff. The oral vancomycin was continued. The patient was given IV fluids. IV Flagyl was added by Infectious Disease. Repeat urine culture obtained showed E. coli. Infectious Disease advised that this was colonization and the patient is asymptomatic, with her comorbidities no additional antibiotics were started. The patient continued to improve and underwent flexible sigmoidoscopy with the findings as above. She is now tolerating a regular diet. The patient is feeling much better, anxious for discharge. PHYSICAL EXAMINATION: VITAL SIGNS: On discharge, temperature 98.1, blood pressure 148/82, heart rate 74, respirations 18 and O2 sats 93% room air. GENERAL: Alert and oriented, no present distress. HEART: Regular rate and rhythm. LUNGS: Clear. ABDOMEN: Soft, nontender. EXTREMITIES: Present times 4, no edema. NEUROLOGIC: Intact. No focal deficits. LABORATORY DATA: CBC on discharge, white count 7.9, hemoglobin 11.3, hematocrit 35.5, platelets 202. Chemistry shows sodium of 141, potassium is 2.9, chloride is 105, bicarb 29.5, BUN 10, creatinine 0.7, glucose 104, magnesium 1.0. PLAN: Potassium and magnesium will be supplemented p.o. prior to discharge and oral supplements until replenished. The patient was discharged. She would go to rehab or home with home health. DISCHARGE SUMMARY REPORT [id number] LIA GREER DISCHARGE MEDICATIONS: Per med rec. TRANSINT:[id number] Voice Confirmation ID: [id number] DOCUMENT ID: [id number] STEPHANIE PRICE DO at 1000 CC: [id number] DICTATION DATE: 08/31/16 0747 QUALITY ASSISTANT: 08/31/16 0845 DIS IN 08/31/16 [facility] [address] [place] [address]
== END 2016-08-31 16:43 | disposition home health service (06) | DRG 372 ==
LOC: D.M2 12:48 → D.SDCHOLD 14:08 → D.M2 08-31 16:43
PROVIDERS: Family Medicine; Internal Medicine Gastroenterology; Student in an Organized Health Care Education/Training Program; ADMIT Family Medicine
PROC: 0DBN8ZX Excision of Sigmoid Colon, Via Natural or Artificial Opening Endoscopic, Diagnostic (ICD-10-PCS; principal; 2016-08-29 16:00)
DX: A04.7 Enterocolitis due to Clostridium difficile (principal); K57.92 Diverticulitis of intestine, part unspecified, without perforation or abscess without bleeding; K64.8 Other hemorrhoids; I10 Essential (primary) hypertension; E78.5 Hyperlipidemia, unspecified; E86.0 Dehydration; F03.90 Unspecified dementia, unspecified severity, without behavioral disturbance, psychotic disturbance, mood disturbance, and anxiety; E87.6 Hypokalemia; F41.9 Anxiety disorder, unspecified; G40.909 Epilepsy, unspecified, not intractable, without status epilepticus; Z22.8 Carrier of other infectious diseases

== ENCOUNTER 2016-09-20 12:52 | Emergency (ER) | payer MEDICARE, OTHER ==
[2016-08-30 11:22] VITALS: BMI 21.9
[~2016-09-20 12:52] MED LIST: COREG 3.1253.125 MG PO; FLAGYL500 MG PO; FLORAJEN3 CAPS460 MG PO; KEPPRA500 MG PO; KLOR-CON 1010 MEQ PO; MAG-OX 400 MG400 MG PO; NORVASC5 MG PO; TENORETIC 50 TA1 TAB PO; VANCOMYCIN250 MG/51 PO; ZOLOFT50 MG PO
[2016-09-20 15:53] LABS: HEMATOCRIT 41.2 % (36.0-48.0); HEMOGLOBIN 13.1 g/dL (12-16); MCH 28.6 pg (26.0-34.0); MCHC 31.8 g/dL (31.0-37.0); RBC 4.58 10x6/uL (4.00-5.40); RDW 16.9 % (11.5-14.5)
[2016-09-20 15:54] LABS: MEAN PLATELET VOLUME 10.5 fL (7.4-10.4); PLATELET COUNT 246 10x3/uL (130-400)
[2016-09-20 16:31] LABS: ALBUMIN 2.8 g/dL (3.4-5.0); ANION GAP 10.2 mmol/L (8-16); BILIRUBIN - TOTAL 0.65 mg/dL (0.2-1.3); CALCIUM 9.2 mg/dL (8.5-10.1); CARBON DIOXIDE 32.3 mmol/L (21.0-32.0); CREATININE - SERUM 0.8 mg/dL (0.6-1.3); POTASSIUM - SERUM 3.5 mmol/L (3.5-5.1); PROTEIN - SERUM 7.1 g/dL (6.4-8.2)
[2016-09-20 16:49] LABS: EOSINOPHILS 1 % (0-7); LYMPHOCYTES 5 % (15-50); MONOCYTES 2 % (2-11); NEUTROPHILS 92 % (40-80); PLATELET ESTIMATE NORMAL
== END 2016-09-20 17:11 | disposition home or self-care (01) ==
LOC: D.ER 12:52
PROVIDERS: Emergency Medicine
DX: B96.89 Other specified bacterial agents as the cause of diseases classified elsewhere (principal); F32.9 Major depressive disorder, single episode, unspecified; G40.909 Epilepsy, unspecified, not intractable, without status epilepticus; I25.10 Atherosclerotic heart disease of native coronary artery without angina pectoris; I10 Essential (primary) hypertension

== ENCOUNTER 2016-11-24 06:58 | Day surgery (SDC) | payer MEDICARE, OTHER ==
[~2016-11-24] VITALS: Ht 170.2 cm; Wt 63.6 kg
--- NOTE | ~2016-11-24 | OP ---
PATIENT NAME: LIA SHOOK MEDICAL RECORD: [id number] :35 LOCATION:D.[facility] ADMISSION DATE: SURGEON: BUZZ ZAMORANO MD DATE OF OPERATION: 11/24/2016 PROCEDURE: EGD with fecal transplant. REFERRING PHYSICIAN: Heath Price DO. INDICATIONS: Ms. Shook is delightful 81-year-old woman with a history of recurrent Clostridium difficile colitis. She has been treated with vancomycin. She has had 5 courses of vancomycin and 1 course of Dificid. Approximately 1-1/2 weeks after stopping her antibiotics, her diarrhea typically resumes, having 5-6 diarrheal bowel movements. She presents for outpatient fecal transplant. PREMEDICATIONS: Total IV anesthesia (ASA 3, advanced age, hypertension, renal insufficiency). INSTRUMENT: Olympus video colonoscope, pediatric. PROCEDURE AND FINDINGS: After receiving informed consent, Ms. Shook's posterior pharynx was anesthetized with Cetacaine spray. She was placed in left lateral decubitus position, sedated as per anesthesia. After achieving an adequate level of sedation, the colonoscope was introduced per orally and advanced into the jejunum without difficulty. At the GE junction, was a nonobstructive Schatzki ring. Small hiatal hernia is present. There is mild antral erythema. In the C loop, was a moderate-sized diverticulum and in the second to the third portion of the duodenum, was approximately 1-cm polyp with ulcerated central area (not biopsied on this exam secondary to fecal transplant presence in the small bowel). The colonoscope was at approximately 120 cm, the fecal transplant was deployed into the jejunum and then two 60 cc of free water followed. The colonoscope was then withdrawn. Ms. Shook tolerated the procedure well, no immediate complications. ASSESSMENT: 1. Recurrent Clostridium difficile colitis, status post fecal transplant. 2. Schatzki ring, asymptomatic. 3. Small hiatal hernia. 4. Mild gastritis. 5. Duodenal diverticulum, second portion. 6. Ulcerated 1-cm polyp in the second to the third portion of the duodenum, not biopsied on this exam secondary to presence of fecal transplant in the small bowel. RECOMMENDATIONS: 1. Probiotics. 2. Recommend follow up with Dr. Wooten regarding duodenal polyp (____ ulcerative appearance suggestive of adenomatous polyp with possible atypical cells, may be amenable to argon plasma coagulation). TRANSINT:[id number] Voice Confirmation ID: [id number] DOCUMENT ID: [id number] OPERATIVE REPORT [id number] LIA SHOOK TERRI MD CC: HEATH PRICE DO [id number] DICTATION DATE: 11/24/16 1007 WINDOW INSTALLER: 11/24/16 1131 [facility] 11/24/16 [place] [id number] [place] [id number]
[2016-11-24] MEDS ORDERED: PROBENECID500 MG PO (08:08)
[2016-11-24] MEDS ORDERED: OMEPRAZOLE20 M1 PO (08:11)
[2016-11-24 08:37] VITALS: BP 176/92; Ht 170.2 cm; Wt 63.6 kg
--- NOTE | 2016-11-24 10:12 | NUR ---
1000- REPORT RECEIVED FROM Perez THAKKAR RN. PT SUPINE WITH HOB ELEVATED. 2L O2 NC WITH O2 SAT >92%. AWAKE/ALERT LIQUIDS OFFERED. VSS. WILL MONITOR 1010- DR. ZAMORANO AT BEDSIDE SPEAKING WITH PT AND FAMILY ABOUT PROCEDURE AND FINDINGS.
--- NOTE | 2016-11-24 10:44 | NUR ---
1030- TOLERATING LIQUIDS. VSS. WILL CONTINUE TO MONITOR. 1040- IV D/C'D, PT TOLERATED. CATHETER INTACT.
--- NOTE | 2016-11-24 11:01 | NUR ---
1055- DISCHARGE INSTRUCTIONS COMPLETED, PT/DAUGHTER VERBALIZES UNDERSTANDING. PAPERWORK SIGNED. 1100- PT DISCHARGED VIA WHEELCHAIR WITH DAUGHTER.
== END 2016-11-24 11:00 | disposition home or self-care (01) ==
LOC: D.OPS 06:58
DX: A04.7 Enterocolitis due to Clostridium difficile (principal); K22.2 Esophageal obstruction; K44.9 Diaphragmatic hernia without obstruction or gangrene; K29.70 Gastritis, unspecified, without bleeding; K57.10 Diverticulosis of small intestine without perforation or abscess without bleeding; K31.7 Polyp of stomach and duodenum; I10 Essential (primary) hypertension; N28.9 Disorder of kidney and ureter, unspecified

== ENCOUNTER 2017-01-04 05:37 | Day surgery (SDC) | payer MEDICARE, OTHER ==
[~2017-01-04] VITALS: Ht 172.7 cm; Wt 54.9 kg
[~2017-01-04 05:37] MED LIST changes: +OMEPRAZOLE20 M1 PO; +PROBENECID500 MG PO
[2017-01-04 06:31] VITALS: BP 142/70; Ht 172.7 cm; Wt 54.9 kg
[2017-01-04 07:02] LABS: BASOPHILS 0.5 % (0-2); EOSINOPHILS 4.3 % (0-7); HEMATOCRIT 36.4 % (36.0-48.0); HEMOGLOBIN 11.4 g/dL (12-16); IMMATURE GRANULOCYTES 0.3 % (0-5); LYMPHOCYTES 21.5 % (15-50); MCH 28.6 pg (26.0-34.0); MCHC 31.3 g/dL (31.0-37.0); MCV 91.5 fL (80.0-100.0); MEAN PLATELET VOLUME 9.8 fL (7.4-10.4); MONOCYTES 9.5 % (2-11); NEUTROPHILS 63.9 % (40-80); PLATELET COUNT 276 10x3/uL (130-400); RBC 3.98 10x6/uL (4.00-5.40); RDW 14.4 % (11.5-14.5); WBC 6.6 10x3/uL (4.8-10.8)
[2017-01-04 07:10] LABS: INR 1.01 (0.85-1.17); PROTIME 13.1 SECONDS (11.6-15.0)
[2017-01-04 07:11] LABS: APTT 27.6 SECONDS (22.8-39.4)
[2017-01-04 07:18] LABS: ANION GAP 11.4 mmol/L (8-16); CALCIUM 9.1 mg/dL (8.5-10.1); CARBON DIOXIDE 30.9 mmol/L (21.0-32.0); CREATININE - SERUM 1.1 mg/dL (0.6-1.3); POTASSIUM - SERUM 3.3 mmol/L (3.5-5.1)
--- NOTE | 2017-01-04 11:08 | NUR ---
1100--PT VOIDS, IV DC'D. PT'S FAMILY ASSISTING WITH DRESSING, ENCOURAGED TO CALL OUT FOR NEEDS. MILES GROSS 1110--DISCHARGE INSTRUCTIONS GIVEN, PT VERBALIZES UNDERSTANDING. PT OFF UNIT VIA WC. MILES GROSS
--- NOTE | 2017-01-10 10:04 | OP ---
PATIENT NAME: LIA GREER MEDICAL RECORD: [id number] :35 LOCATION:D.[facility] ADMISSION DATE: SURGEON: HEATH ALDRIDGE MD DATE OF OPERATION: 01/04/2017 PREOPERATIVE DIAGNOSIS: Duodenal polyp. POSTOPERATIVE DIAGNOSIS: Duodenal polyp. PROCEDURE: Esophagogastroduodenoscopy with duodenal polypectomies utilizing argon plasma engineering teacher. SURGEON: Heath Aldridge MD HOSPITAL PHARMACY TECHNICIAN: None. BLOOD LOSS: Minimal. ANESTHESIA: General. COMPLICATIONS: None. The risks, possible complications and alternatives to the procedure were explained to the patient. She elects to proceed. The discussion specifically included, but was not limited to, bleeding requiring emergency reoperation, infection, endoscopic perforation and possible need for additional endoscopic procedures in the future or chemotherapy. ENDOSCOPIC COURSE: The patient was conveyed to the operating room electively on 01/04/2017. General anesthesia was induced by the anesthesia staff. A bite block was inserted. A gastroscope was inserted into the mouth. It was advanced easily into the hypopharynx. The esophagus was easily intubated as were the stomach and duodenum. Upon withdrawal, retroflexed to angulus views were obtained. I then advanced into the duodenum. The polyp was easily identifiable. Cold endoscopic biopsies were performed to the polyp. I then ablated the polyp utilizing the argon plasma engineering teacher with the esophageal setting in the forced mode. Once the polyp had been thoroughly ablated, the endoscope was withdrawn under direct vision. I will see the patient in my office in 2-3 weeks. We will review the results of the biopsies. It is very likely I will recommend that we perform the same procedure with the argon plasma engineering teacher in 1 year. TRANSINT:[id number] Voice Confirmation ID: [id number] DOCUMENT ID: [id number] HEATH ALDRIDGE MD at 1004 CC: [id number] DICTATION DATE: 01/09/17 1512 AUTOMOTIVE DETAILER: 01/09/17 2218 [facility] 01/04/[address] [address]
--- NOTE | 2017-01-10 10:04 | HP ---
PATIENT: LIA GREER MEDICAL RECORD: [id number] ACCOUNT: [id number] LOCATION:[facility] : 35 ADMISSION DATE: 01/04/17 HISTORY AND PHYSICAL EXAMINATION There is history and physical on the chart from when I saw the patient in the office. The history and physical examination is unchanged from the office history and physical. The patient has duodenal polyp. I am going to plan for a duodenal polypectomy utilizing the argon plasma manager pricing. The patient's primary care physician is Dr. Garcia. The patient was referred by Dr. Perez. TRANSINT:[id number] Voice Confirmation ID: [id number] DOCUMENT ID: [id number] STEPHANIE ALDRIDGE MD at 1004 CC: [id number] DICTATION DATE: 01/04/17 1005 RIBBER: 01/04/17 1100 [facility] 01/04/[address] [address]
== END 2017-01-04 11:10 | disposition home or self-care (01) ==
LOC: D.OPS 05:37 → D.PAN 08:00 → D.OPS 11:10 → D.PAN 14:30 → D.OPS 14:30
PROVIDERS: Anesthesiology
DX: K31.7 Polyp of stomach and duodenum (principal); I10 Essential (primary) hypertension; M81.0 Age-related osteoporosis without current pathological fracture; Z01.812 Encounter for preprocedural laboratory examination

== ENCOUNTER 2017-02-22 11:29 | Inpatient (IN) | payer MEDICARE, OTHER ==
[~2017-02-22] VITALS: Ht 170.2 cm; Wt 66.2 kg
[2017-02-22 12:11] LABS: HEMATOCRIT 40.4 % (36.0-48.0); MCH 28.9 pg (26.0-34.0); MCHC 32.2 g/dL (31.0-37.0); MCV 89.8 fL (80.0-100.0); MEAN PLATELET VOLUME 10.4 fL (7.4-10.4); PLATELET COUNT 304 10x3/uL (130-400); RDW 14.3 % (11.5-14.5); WBC 23.7 10x3/uL (4.8-10.8)
[2017-02-22 12:19] LABS: ALBUMIN 2.7 g/dL (3.4-5.0); BILIRUBIN - TOTAL 1.09 mg/dL (0.2-1.3); CARBON DIOXIDE 32.5 mmol/L (21.0-32.0); CREATININE - SERUM 1.1 mg/dL (0.6-1.3); POTASSIUM - SERUM 3.5 mmol/L (3.5-5.1); PROTEIN - SERUM 7.6 g/dL (6.4-8.2)
[2017-02-22 12:30] LABS: LYMPHOCYTES 8 % (15-50); MONOCYTES 1 % (2-11); NEUTROPHILS 90 % (40-80); PLATELET ESTIMATE NORMAL
[2017-02-22 12:32] LABS: APPEARANCE HAZY (CLEAR); BILIRUBIN NEGATIVE (NEGATIVE); COLOR YELLOW (YELLOW); GLUCOSE NEGATIVE (NEGATIVE); KETONE NEGATIVE (NEGATIVE); LEUKOCYTE ESTERASE 1+ (NEGATIVE); NITRITE NEGATIVE (NEGATIVE); PROTEIN 3+ mg/dL (NEGATIVE); RED CELLS - URINE 0-5 /hpf (0-5); SPECIFIC GRAVITY 1.015 (1.005-1.020); UROBILINOGEN NORMAL (NORMAL); WHITE CELLS - URINE 25-50 /hpf (0-5)
[2017-02-22 12:33] LABS: BACTERIA MANY /hpf (NONE SEEN); EPITHELIAL CELLS 0-5 /hpf (0-5)
[2017-02-22 15:17] VITALS: BP 121/76; BMI 22.7
[2017-02-22 16:29] VITALS: BP 121/64
[2017-02-22 19:00] VITALS: BP 142/70
--- NOTE | 2017-02-22 19:15 | NUR ---
REC REPORT, ASSUMED CARE OF PATIENT. ALERT/AWAKE WATCHING TV. DENIES PAIN OR ANY NEEDS. 0N 02 AT 2L, RR EVEN U/L. IV IN R AC WITH NS INFUSING AT 100ML/HR. ORIENTED TO CALL LIGHT FOR ANY NEEDS. PLACED BEDSIDE TABLE IN REACH FOR HER WATER AND PERSONAL ITEMS.
--- NOTE | 2017-02-22 20:30 | NUR ---
ADMIN PO FLAGYL WITH SIPS OF WATER SWALLOWING WITHOUT DIFFICULTY. REQUESTED TV TURNED OFF AND DOOR PARTIALLY CLOSED TO SLEEP.
--- NOTE | 2017-02-23 01:20 | NUR ---
RESTING QUIETLY WITH EYS CLOSED. RR EVEN U/L. HAS CL IN REACH.
[2017-02-23 04:21] LABS: BASOPHILS 0.1 % (0-2); EOSINOPHILS 0 % (0-7); HEMATOCRIT 37.8 % (36.0-48.0); IMMATURE GRANULOCYTES 0.4 % (0-5); LYMPHOCYTES 4.2 % (15-50); MCH 28.4 pg (26.0-34.0); MCHC 31.7 g/dL (31.0-37.0); MCV 89.6 fL (80.0-100.0); MEAN PLATELET VOLUME 10.2 fL (7.4-10.4); MONOCYTES 8.3 % (2-11); PLATELET COUNT 241 10x3/uL (130-400); RBC 4.22 10x6/uL (4.00-5.40); RDW 14.4 % (11.5-14.5); WBC 20.3 10x3/uL (4.8-10.8)
[2017-02-23 04:44] LABS: ANION GAP 11.2 mmol/L (8-16); CALCIUM 8.5 mg/dL (8.5-10.1); CARBON DIOXIDE 30.2 mmol/L (21.0-32.0); MAGNESIUM - SERUM 1.4 mg/dL (1.8-2.4); PHOSPHOROUS 2.9 mg/dL (2.5-4.9); POTASSIUM - SERUM 3.4 mmol/L (3.5-5.1)
[2017-02-23 06:22] VITALS: BP 170/79
--- NOTE | 2017-02-23 07:48 | HP ---
PATIENT: LIA GREER MEDICAL RECORD: [id number] ACCOUNT: [id number] LOCATION:[address] : 35 ADMISSION DATE: 02/22/17 HISTORY AND PHYSICAL EXAMINATION HISTORY OF PRESENT ILLNESS: An 81-year-old female presented to the Emergency Room with fever, chills or dysuria. She was seen at an urgent care facility a week ago, started on oral antibiotics for presumed UTI, got progressively worse and brought into the Emergency Room today with worsening symptoms of fever and chills. PAST MEDICAL HISTORY: Significant for heart disease, recurrent C. diff, had recent stool implantation via EGD from GI with significant improvement in symptoms, history of depression, epilepsy and hypertension. SOCIAL HISTORY: , lives alone, but has supportive family. Has care 8 hours out of the day, morning and evening. FAMILY HISTORY: History of hypertension. CURRENT MEDICATIONS: Listed as amlodipine, carvedilol, sertraline, levetiracetam, ____ and probiotic. REVIEW OF SYSTEMS: GENERAL: No known change in weight. Decreased activity with acute illness. HEENT: No cephalgia, visual changes, tinnitus, epistaxis or dysphagia. CARDIOVASCULAR: Denies chest pain or palpitations. PULMONARY: Denies hemoptysis, denies night sweats. GASTROINTESTINAL: Denies hematemesis, hematochezia or melena. Denies present diarrhea. GENITOURINARY: Pain and burning with urination. MUSCULOSKELETAL: No acute changes, limited ambulation with acute illness. NEUROLOGIC: No focal deficits other than lethargy with acute illness. PHYSICAL EXAMINATION: VITAL SIGNS: Temp 100.7, blood pressure is 178/86, heart rate 96, respirations 18 and O2 sats 91% on room air. Repeat vital signs showed temperature 97.9, blood pressure 121/76, heart rate 78, respirations 16 and O2 sats 99%. GENERAL: Alert, presently comfortable. HEENT: Normocephalic and atraumatic. Eyes: Pupils are equally round and reactive to light and accommodation. Extraocular muscles intact. Conjunctiva was not injected. Ears: Canals patent, TMs are intact. Nose: Nares patent without drainage. Throat: No erythema, no exudates. NECK: Supple. No lymphadenopathy, no JVD. HEART: Regular rate and rhythm. LUNGS: Clear to auscultation bilaterally. Breathing is nonlabored. ABDOMEN: Soft, nontender. Bowel sounds in all 4 quadrants. EXTREMITIES: Present times 4. No edema. NEUROLOGIC: No focal deficits. LABORATORY DATA: CBC: White count 23,700, hemoglobin 13, hematocrit 40.4 and platelets 304. Chemistry shows a sodium of 138, potassium 3.5, chloride 100, bicarbonate 32.5, BUN 17, creatinine 1.1 and glucose 118. AST 17 and ALT 12. Urinalysis yellow, hazy, 3+ protein, negative ketone, 1+ blood, 1+ leukocyte esterase, 25-50 wbc's per high powered field, many bacteria. Urine culture is HISTORY AND PHYSICAL [id number] ZOEY,LIA G pending. Stool culture for C. diff and wbc's, culture and occult blood pending. Blood cultures pending. ASSESSMENT AND PLAN: Sepsis secondary to urinary tract infection, history of recurrent Clostridium difficile and cultures pending. Patient started on empiric antibiotics in the Emergency Room. We will continue these, monitor for results and await culture results. Continue probiotics. Supportive care. Family member is present, discussed care plan with family and agreed with plan. TRANSINT:[id number] Voice Confirmation ID: [id number] DOCUMENT ID: [id number] STEPHANIE PRICE DO at 0748 CC: [id number] DICTATION DATE: 02/22/17 1621 FILTER TANK TENDER: 02/22/17 [address] [facility] [address] [place] [address]
--- NOTE | 2017-02-23 07:58 | NUR ---
ASSESSMENT COMPLETED. AWAKE ALERT AND ORIENTED.02 AT 2 L/M PER NC. DENIES ANY NEEDS. RIGHT AC WITH NS AT 100. SR UP WITH CALL LIGHT IN REACH. WILL MONITOR
[2017-02-23 08:27] VITALS: BP 154/75
--- NOTE | 2017-02-23 09:24 | NUR ---
CALLED AND SPOKE TO DR PRICE, NEW ORDERS RECEIVED.
--- NOTE | 2017-02-23 10:15 | NUR ---
PT BACK FROM CT SCAN. REFUSES SCDS. WILL MONITOR
[2017-02-23 10:26] VITALS: Ht 170.2 cm; Wt 66.2 kg
[2017-02-23 12:05] VITALS: BP 152/81
[2017-02-23 16:43] VITALS: BP 164/80
--- NOTE | 2017-02-23 19:15 | NUR ---
ALERT/AWAKE DENIES PAIN OR ANY NEEDS. HAS O2 AT 2L/NC. RR EVEN U/L. IV IN R AC WITH NS INFUSING AT 100ML/HR. DOES NOT WANT THE SCD'S ON. C/O "HURTING MY LEGS". ORIENTED TO CL FOR ANY NEEDS. BED ALARM IS ON.
[2017-02-23 20:00] VITALS: BP 167/79
--- NOTE | 2017-02-23 21:35 | NUR ---
ADMIN SCHED MED WITH SIPS OF WATER, SWALLOWING WITHOUT DIFFICULTY. DENIES ANY NEEDS. REQUESTED LIGHTS OFF AND DOOR PARTIALLY OPEN.
[2017-02-24] VITALS: BP 143/731
--- NOTE | 2017-02-24 02:00 | NUR ---
PULLED IV OUT. RESITED IN LEFT FA 22G.
[2017-02-24 04:00] VITALS: BP 170/68
[2017-02-24 05:05] LABS: BASOPHILS 0.4 % (0-2); EOSINOPHILS 2.9 % (0-7); HEMATOCRIT 36.3 % (36.0-48.0); HEMOGLOBIN 11.4 g/dL (12-16); IMMATURE GRANULOCYTES 0.3 % (0-5); LYMPHOCYTES 9.8 % (15-50); MCH 28.4 pg (26.0-34.0); MCHC 31.4 g/dL (31.0-37.0); MCV 90.5 fL (80.0-100.0); MEAN PLATELET VOLUME 10.3 fL (7.4-10.4); MONOCYTES 12.6 % (2-11); PLATELET COUNT 231 10x3/uL (130-400); RBC 4.01 10x6/uL (4.00-5.40); RDW 14.3 % (11.5-14.5)
[2017-02-24 05:06] LABS: WBC 11.2 10x3/uL (4.8-10.8)
[2017-02-24 05:29] LABS: ALBUMIN 1.9 g/dL (3.4-5.0); ANION GAP 10.4 mmol/L (8-16); BILIRUBIN - TOTAL 0.28 mg/dL (0.2-1.3); CALCIUM 8.1 mg/dL (8.5-10.1); CREATININE - SERUM 0.8 mg/dL (0.6-1.3); MAGNESIUM - SERUM 1.6 mg/dL (1.8-2.4); PHOSPHOROUS 2.4 mg/dL (2.5-4.9); POTASSIUM - SERUM 3.4 mmol/L (3.5-5.1); PROTEIN - SERUM 5.6 g/dL (6.4-8.2)
--- NOTE | 2017-02-24 07:30 | NUR ---
ASSESSMENT COMPLETED. O2 AT 2 L/M PER NC. LEFT FA WITH NS AT 100. REFUSES SCDS. UP WITH ASSIST. DENIES ANY NEEDS. WILL MONITOR
[2017-02-24 08:58] VITALS: BP 146/73
--- NOTE | 2017-02-24 09:47 | NUR ---
HOB UP, DAUGHTER AT BEDSIDE, DENIES ANY NEEDS. WILL MONITOR
--- NOTE | 2017-02-24 10:27 | NUR ---
RESTING QUIETLY WATCHING TV NAD NOTED
[2017-02-24 11:55] VITALS: BP 137/71
--- NOTE | 2017-02-24 16:37 | NUR ---
Patient Name: LIA GREER Admission Status: ER Accout number: [id number] Admission Date: 02-22-2017 : 1935 Admission Diagnosis:FEVER, UNSPECIFIED Attending: ALVA Current LOS: 2 Anticipated DC Date: Planned Disposition: Inpatient Rehab Primary Insurance: MEDICARE A & B [facility] IN[facility] Discharge Planning Comments: * Is the patient Alert and Oriented? Yes 0 * How many steps to enter\exit or inside your home? 13+ W/LIFT 0 * PCP DR. PRICE 0 * [facility]acy [facility] 0 * Preadmission Environment Home with Family 0 * ADLs Partial Dependent 0 * Partial ADLs (Assistance needed) Medication Management 0 * Equipment Bedside Commode Cane Elevated [place] Seat Shower Chair Walker 0 * Other Equipment NO MEDICAL EQUIPMENT PROVIDER PREFERENCE 0 * List name and contact numbers for known caregivers / representatives who currently or will assist patient after discharge: TIFFANY BRIANNA VELASQUEZ, BRYSON NOLASCO DTR, 0 * Community resources currently utilized Private Duty Care 0 * Please name any agencies selected above. [facility], SATURDAYS FAMILY IN HOME DAILY AND AT NIGHT TO ASSIST WITH PT'S NEEDS 0 * Additional services required to return to the preadmission environment? No 0 * Can the patient safely return to the preadmission environment? Yes 0 * Has this patient been hospitalized within the prior 30 days at any hospital? No 0 CM MET WITH PT AND DAUGHTER IN ROOM TO DISCUSS DISCHARGE PLANNING AND NEEDS. PT REPORTS LIVING AT HOME AND HAS CAREGIVERS ON SATURDAYS, FAMILY ASSISTS DAILY AND AT NIGHT IN THE HOME WHEN PERSONAL CARE IS NOT THERE. PT REPORTS HAVING ALL NEEDED MEDICAL EQUIPMENT WITH NO PREFERENCE ON PROVIDER. CM DISCUSSED AVAILABILITY OF HOME HEALTH, REHAB SERVICES AND MEDICAL EQUIPMENT. PT REPORTS PLAN TO GO HOME AT DISCHARGE, PT'S DAUGHTER WOULD LIKE PT EVALUATED FOR INPATIENT REHAB AT [place] AND WILL SPEAK TO DR. PRICE ABOUT IT; PT IS AGREEABLE ALSO. PT REPORTS HER FAMILY WILL PICK HER UP FOR DISCHARGE HOME. IMPORTANT MESSAGE FROM MEDICARE PROVIDED AND EXPLAINED. PT WOULD LIKE INPATIENT REHAB PRESCREENING FOR POSSIBLE ADMISSION, IF NOT, SHE PLANS TO GO HOME WITH CONTINUED ASSISTANCE OF FAMILY AND CAREGIVERS. CM TO FOLLOW AND ASSIST NEEDED. Usability Specialist: Osmin Rene
--- NOTE | 2017-02-24 18:16 | NUR ---
LYING QUIETLY, DENIES ANY NEEDS. CALL LIGHT IN REACH WITH SR UP. WILL MONITOR
--- NOTE | 2017-02-24 19:13 | NUR ---
RECEIVED REPORT, ASSUMED CARE OF PATIENT. ALERT/AWAKE, DENIES ANY NEEDS OR DISCOMFORTS. CALL LIGHT IN REACH.
[2017-02-24 20:00] VITALS: BP 141/82
--- NOTE | 2017-02-25 01:30 | NUR ---
WATCHING TV. DENIES ANY NEEDS.
--- NOTE | 2017-02-25 03:48 | NUR ---
STEM CLEANING MACHINE FEEDER CHANGING BED FOR INCONTINENCE OF URINE.
[2017-02-25 04:00] VITALS: BP 170/82
[2017-02-25 04:34] LABS: BASOPHILS 0.4 % (0-2); EOSINOPHILS 6.6 % (0-7); HEMOGLOBIN 11.3 g/dL (12-16); IMMATURE GRANULOCYTES 0.2 % (0-5); LYMPHOCYTES 14.6 % (15-50); MCH 28.2 pg (26.0-34.0); MCHC 31.4 g/dL (31.0-37.0); MCV 89.8 fL (80.0-100.0); MEAN PLATELET VOLUME 10.1 fL (7.4-10.4); MONOCYTES 10.1 % (2-11); NEUTROPHILS 68.1 % (40-80); PLATELET COUNT 276 10x3/uL (130-400); RBC 4.01 10x6/uL (4.00-5.40); RDW 14.3 % (11.5-14.5); WBC 9.2 10x3/uL (4.8-10.8)
[2017-02-25 04:55] LABS: ALBUMIN 2.2 g/dL (3.4-5.0); ANION GAP 6.3 mmol/L (8-16); BILIRUBIN - TOTAL 0.32 mg/dL (0.2-1.3); CALCIUM 8.5 mg/dL (8.5-10.1); CREATININE - SERUM 0.8 mg/dL (0.6-1.3); MAGNESIUM - SERUM 1.6 mg/dL (1.8-2.4); PHOSPHOROUS 1.8 mg/dL (2.5-4.9); POTASSIUM - SERUM 3.3 mmol/L (3.5-5.1); PROTEIN - SERUM 6.5 g/dL (6.4-8.2)
--- NOTE | 2017-02-25 07:40 | NUR ---
AM ROUNDS- PT IN BED, DENIES ANY NEEDS AT THIS TIME. LT FA IV INFUSING NS AT 100CC/H. PT DENIES ANY NEEDS AT THIS TIME. BED LOW AND WHEELS LOCKED. BED RAILS X2, CALL LIGHT IN REACH, NAD NOTED, WILL CONTINUE TO MONITOR.
--- NOTE | 2017-02-25 08:34 | NUR ---
AM MEDS GIVEN AT THIS TIME. PT IN BED, EATING BREAKFAST. DENIES ANY NEEDS AT THIS TIME. CALL LIGHT IN REACH, NAD NOTED, WILL CONTINUE TO MONITOR.
[2017-02-25 09:34] VITALS: BP 160/92
[2017-02-25 12:38] VITALS: BP 154/87
--- NOTE | 2017-02-25 13:54 | NUR ---
PT TRANSFERED TO RADIOLOGY, VIA WHEELCHAIR,NAD NOTED.
[2017-02-25 16:48] VITALS: BP 168/83
--- NOTE | 2017-02-25 19:34 | NUR ---
PT RESTING IN BED. FAMILY AT BEDSIDE. PT C/O IV ON LEFT HAND. SCANT AMOUNT OF BLOOD NOTED AT IV SITE. NO OTHER COMPLAINTS OR NEEDS AT THIS TIME. NO S/S OF DISTRESS. WILL CPOC
[2017-02-25 20:00] VITALS: BP 160/75
[2017-02-26 04:00] VITALS: BP 181/88
[2017-02-26 05:37] LABS: BASOPHILS 0.5 % (0-2); EOSINOPHILS 5.5 % (0-7); HEMATOCRIT 36.6 % (36.0-48.0); HEMOGLOBIN 11.5 g/dL (12-16); IMMATURE GRANULOCYTES 0.3 % (0-5); LYMPHOCYTES 19.4 % (15-50); MCHC 31.4 g/dL (31.0-37.0); MCV 89.1 fL (80.0-100.0); MEAN PLATELET VOLUME 10.4 fL (7.4-10.4); MONOCYTES 13.3 % (2-11); PLATELET COUNT 300 10x3/uL (130-400); RBC 4.11 10x6/uL (4.00-5.40); RDW 14.2 % (11.5-14.5); WBC 8.7 10x3/uL (4.8-10.8)
[2017-02-26 05:52] LABS: ALBUMIN 2.2 g/dL (3.4-5.0); ALKALINE PHOSPHATASE 87 U/L (46-116); ALT (SGPT) 8 U/L (10-68); BILIRUBIN - TOTAL 0.39 mg/dL (0.2-1.3); CALC OSMOLALITY 278 mosm/kg (275-300); CALCIUM 8.5 mg/dL (8.5-10.1); CARBON DIOXIDE 32.9 mmol/L (21.0-32.0); CHLORIDE - SERUM 105 mmol/L (98-107); CREATININE - SERUM 0.7 mg/dL (0.6-1.3); GLUCOSE 88 mg/dL (74-106); POTASSIUM - SERUM 3.1 mmol/L (3.5-5.1); PROTEIN - SERUM 6.7 g/dL (6.4-8.2); SODIUM 141 mmol/L (136-145); UREA NITROGEN 11 mg/dL (7-18); eGFR NON AFRICAN AMERICAN 85 mL/min (90-120)
--- NOTE | 2017-02-26 06:24 | NUR ---
PT ASLEEP. RESPIRATIONS EVEN AND UNLABORED. NO S/S OF DISTRESS. BED LOW CALL LIGHT WITHIN REACH. WILL CPOC
--- NOTE | 2017-02-26 07:30 | NUR ---
REPORT RECIEVED. PT RESTING QUIETLY. 40MEQ OF POTASSIUM GIVEN FOR LOW K+ OF 3.1. PT EXPRESSED CONCERN OVER BLOOD PRESSURE BEING HIGH EARLY THIS MORNING. EXPLAINED THAT SHE HASN'T BEEN TAKING HER USUAL MEDICATION REGIMEN. WILL GET MED LIST FROM DAUGHTER TODAY AND REVIEW MED REC. WILL CTM.
[2017-02-26 08:00] VITALS: BP 173/95
[2017-02-26 08:52] LABS: INR 1.02 (0.85-1.17); PROTIME 13.3 SECONDS (11.6-15.0)
--- NOTE | 2017-02-26 11:44 | NUR ---
PT COMPLAINING OF PAIN AT IV SITE. FLUIDS WERE DECREASED TO 30ML/HR DUE TO DISCOMFORT.
[2017-02-26 12:00] VITALS: BP 153/84
[2017-02-26] MEDS ORDERED: PEPCID20 MG PO (14:45)
--- NOTE | 2017-02-26 15:20 | NUR ---
SPOKE TO DR. PALACIOS ABOUT RESTARTING HOME MEDS. HE GAVE ME THE VERBAL ORDER TO RESTART MEDS. INCREASED FLUIDS TO 75MLS/HR PER PT TOLERATION. WILL CTM.
[2017-02-26 16:00] VITALS: BP 164/89
--- NOTE | 2017-02-26 18:00 | NUR ---
PT RESTING QUIETLY, RR EVEN AND UNLABORED. FAMILY AT BEDSIDE. WILL GIVE REPORT ON PT CONDITION FOR THE DAY.
--- NOTE | 2017-02-26 19:24 | NUR ---
PT RESTING IN BED WATCHING TV. DENIES ANY NEEDS AT THIS TIME. NO S/S OF DISTRESS. BED LOW AND CALL LIGHT WITHIN REACH. WILL CPOC
[2017-02-26 20:00] VITALS: BP 171/91
--- NOTE | 2017-02-26 22:00 | NUR ---
PT RESTING IN BED WATCHING TV. PT VERBALIZES UNDERSTANDING ABOUT BEING NPO AFTER MIDNIGHT. PT DENIES ANY NEEDS. NO S/S OF DISTRESS. WILL CPOC
[2017-02-27] VITALS (15 sets, daily range): BP systolic 127–179; BP diastolic 62–99
[2017-02-27 04:24] LABS: BASOPHILS 0.5 % (0-2); EOSINOPHILS 4.6 % (0-7); HEMOGLOBIN 11.7 g/dL (12-16); IMMATURE GRANULOCYTES 0.4 % (0-5); LYMPHOCYTES 19.4 % (15-50); MCH 28.5 pg (26.0-34.0); MCHC 31.6 g/dL (31.0-37.0); MEAN PLATELET VOLUME 10.2 fL (7.4-10.4); MONOCYTES 11.6 % (2-11); NEUTROPHILS 63.5 % (40-80); PLATELET COUNT 270 10x3/uL (130-400); RBC 4.11 10x6/uL (4.00-5.40); RDW 14.6 % (11.5-14.5); WBC 7.6 10x3/uL (4.8-10.8)
[2017-02-27 04:36] LABS: ANION GAP 7.1 mmol/L (8-16); CALCIUM 8.7 mg/dL (8.5-10.1); CREATININE - SERUM 0.8 mg/dL (0.6-1.3); POTASSIUM - SERUM 4.1 mmol/L (3.5-5.1)
[2017-02-27 04:49] LABS: APTT 29.7 SECONDS (22.8-39.4); INR 1.06 (0.85-1.17); PROTIME 13.7 SECONDS (11.6-15.0)
--- NOTE | 2017-02-27 04:57 | NUR ---
PT INCONT LARGE AMOUNT. PAD AND GOWN CHANGED. PT DENIES ANY NEEDS. NO S/S OF DISTRES. SITTING IN BED WATCHING TV. BED LOW AND CALL LIGHT WITHIN REACH WILL CONTINUE POC
--- NOTE | 2017-02-27 08:46 | NUR ---
AM ROUNDS COMPLETED. SHIFT ASSESSMENT COMPLETED. PT SWALLOWED MORNING MEDS WITH SIP OF WATER. HELP ANBX TO BE TAKEN WITH FOOD DIRECTED AND PT IS CURRENTLY NPO FOR LIVER BIOPSY LATER TODAY. PT IS A&O AND STATES SHE RESTED WELL. L.WRIST PIV WITH DRSG CDI AND SWAB CAPS IN USE. NS INFUSING @75ML/HR. ASSISTED PT TO BR AND SHE VOIDED LARGE AMOUNT OF YELLOW URINE WITHOUT ANY DIFFICULTIES. PT BACK IN BED AND RESTING UNTIL HER PROCEDURE. CL IN REACH, BED IN LOWEST, SIDE RAILS X2 AND BUILT IN BED ALARM ON. NO FURTHER NEEDS AT THIS TIME. WILL CTM.
--- NOTE | 2017-02-27 11:03 | NUR ---
PT LEAVING NOW FOR HER LIVER BIOPSY. DENIES ANY CURRENT PAIN OR NEEDS. WILL CPOC.
--- NOTE | 2017-02-27 12:13 | NUR ---
PT BACK FROM LIVER BIOPSY. BIOPSY WAS UNABLE TO BE OBTAINED R/T BREATHING ISSUES. PT HAS DRSG TO RUQ THAT IS CDI NO S/S OF HEMATOMA OR BLEEDING NOTED. VSS AND BEING RECORDERED Q15 PER POST PROCEDURE POLICY. FAMILY AT BEDSIDE WILL CTM.
--- NOTE | 2017-02-27 12:47 | NUR ---
CONSENTS OBTAINED FOR ANESTHESIA TO REATTEMPT LIVER BIOPSY. FAMILY AT BEDSIDE AND VERBALIZED UNDERSTANDING. RUQ DRSG STILL CDI NO S/S OF HEMATOMA OR SWELLING NOTED. VSS AND STILL BEING MONITERED. PT WILL REMAIN NPO AND VERBALIZED UNDERSTANDING. CL IN REACH, BED IN LOWEST, SIDE RAILS X2. WILL CPOC.
--- NOTE | 2017-02-27 13:26 | NUR ---
Patient Name: LIA GREER Encounter No: [id number] : 1935 Primary Insurance: MEDICARE A & B Anticipated DC Date: 02-27-2017 Planned Disposition: Home DCP follow-up note: CM REVIEWED CHART, 'S NOTE INDICATES PT MAY DISCHAGE TODAY AFTER HER BIOPSY. CM MET WITH PT IN ROOM TO DISCUSS DISCHARGE NEEDS AND PLANNING. CM DISCUSSED AVAILABILITY OF HOME HEALTH, REHAB SERVICES AND MEDICAL EQUIPMENT. PT DENIES DISCHARGE NEEDS, STATES SHE DOES NOT WANT TO GO TO INPATIENT REHAB AND THAT IS JUST HER DAUGHTER THAT WANTS IT. PT FEESLS SHE IS SAFE TO DISCHARGE HOME BUT DOES NOT WANT TO GO HOME TODAY AFTER HAVING A BIOPSY TO MAKE SURE SHE IS GOING TO BE OK. FAMILY OR CAREGIVER TO TRANSPORT HOME AT DISCHARGE. IMPORTANT MESSAGE FROM MEDICARE PROVIDED AND EXPLAINED. CM TO FOLLOW AND ASSIST IF NEEDED. Osmin Rene, CASE MANAGEMENT
--- NOTE | 2017-02-27 13:45 | NUR ---
CT HERE FOR PTS LIVER BIOPSY TO TRY IT AGAIN WITH ANESTHESIA. PT READY TO GO AND DENIES ANY QUESTIONS OR CONCERNS.
--- NOTE | 2017-02-27 16:18 | NUR ---
PT BACK FROM LIVER BIOPSY. AWAKE AND ORIENTED. DRSG TO RUQ OF ABDOMEN IN PLACE AND CDI. NO S/S OF BLEEDING OR HEMATOMA NOTED. VSS AND BEING MONITERED PER POLICY. PT RESTING IN BED WITH FAMILY AT BEDSIDE AND STATES SHE IS HUNGRY. WILL ORDER FOOD TRAY AND CPOC.
--- NOTE | 2017-02-27 18:17 | NUR ---
ASSISTED PT TO BR TO URINATE. PT STATES SHE IS FEELING WELL. VSS AND DRSG TO RUQ CDI. NO S/S OF HEMATOMA OR BLEEDING NOTED. PT HOPING TO BE DISCHARGED TOMORROW. CL IN REACH. WILL CTM.
--- NOTE | 2017-02-27 19:56 | NUR ---
PT ASLEEP. RESPONSIVE TO TOUCH. RESPIRATIONS EVEN AND UNLABORED. NO S/S OF DISTRESS. BED LOW AND CALL LIGHT WITHIN REACH. WILL CPOC
[2017-02-28] VITALS: BP 162/72
[2017-02-28 04:00] VITALS: BP 167/84
--- NOTE | 2017-02-28 04:05 | NUR ---
PT RESTING IN BED. C/O RIGHT SIDE PAIN 11/30. 2 TYLENOL GIVEN. PT DENIES ANY OTHER NEEDS NO S/S OF DISTRESS WILL CPOC
[2017-02-28 05:03] LABS: BASOPHILS 0.3 % (0-2); EOSINOPHILS 2.2 % (0-7); HEMATOCRIT 38.9 % (36.0-48.0); HEMOGLOBIN 12.1 g/dL (12-16); IMMATURE GRANULOCYTES 0.5 % (0-5); LYMPHOCYTES 13.5 % (15-50); MCH 28.2 pg (26.0-34.0); MCHC 31.1 g/dL (31.0-37.0); MCV 90.7 fL (80.0-100.0); MEAN PLATELET VOLUME 10.3 fL (7.4-10.4); NEUTROPHILS 73.5 % (40-80); RBC 4.29 10x6/uL (4.00-5.40); RDW 14.7 % (11.5-14.5)
[2017-02-28 05:05] LABS: PLATELET COUNT 337 10x3/uL (130-400); WBC 11.9 10x3/uL (4.8-10.8)
[2017-02-28 05:11] LABS: ANION GAP 7.5 mmol/L (8-16); CALCIUM 8.9 mg/dL (8.5-10.1); CARBON DIOXIDE 34.6 mmol/L (21.0-32.0); CREATININE - SERUM 0.9 mg/dL (0.6-1.3); POTASSIUM - SERUM 4.1 mmol/L (3.5-5.1)
--- NOTE | 2017-02-28 06:30 | NUR ---
PT ASLEEP RESPIRATIONS EVEN ANDD UNLABORED, NO S/S OF DISTRESS. WILL CPOC
--- NOTE | 2017-02-28 07:27 | NUR ---
AM ROUNDS- PT IN BED, DR. HARRIS AT BEDSIDE, TO ASSESS PT. PT DENIES ANY NEEDS AT THIS TIME. BED LOW AND WHEELS LOCKED, BEDSIDE RAILS X2. LT WRIST IV SL. PT ON RA, RESP EVEN AND UNLABORED. CALL LIGHT IN REACH, NAD NOTED, WILL CONTINUE TO MONITOR.
[2017-02-28] MEDS ORDERED: MACROBID100 MG PO (07:41)
[2017-02-28] MEDS ORDERED: FLAGYL250 MG PO (07:42)
[2017-02-28] MEDS ORDERED: FLORAJEN3 CAPS460 MG PO (07:43)
[2017-02-28 08:00] VITALS: BP 126/70
--- NOTE | 2017-02-28 09:19 | NUR ---
AMINISTERED MORNING MEDS. PT IN BED, WATCHING TV, DENIES ANY NEEDS AT THIS TIME. CALL LIGHT IN REACH, NAD NOTED, WILL CONTINUE TO MONITOR.
--- NOTE | 2017-02-28 09:23 | NUR ---
Patient Name: LIA GREER Encounter No: [id number] : 1935 Primary Insurance: MEDICARE A & B Anticipated DC Date: 02-28-2017 Planned Disposition: Home WITH HOME HEALTH External Planned Provider: [facility] DCP follow-up note: CM RECEIVED DISCHARGE AND HOME HEALTH ORDERS. CM MET WITH PT IN ROOM, PT IN AGREEMENT WITH DISCHARGE HOME TODAY AND WITH HOME HEALTH. CHOICE LETTER PROVIDED, PT CHOSE [facility], CHOICE SIGNED. PT DENIES FURTHER NEEDS, FAMILY OR CAREGIVER TO TRANSPORT HOME AT DISCHARGE TODAY. CM CALLED [facility], , PROVIDED REFERRAL TO [facility] WHO ACCEPTED PT FOR NEW HOME HEALTH; CM FAXED REFERRAL TO [facility] AT [phone]. PT NOTIFIED. NO FURHTER DISCHARGE NEEDS. MEAT HANGER NOTIFIED. Osmin Rene, CASE MANAGEMENT
--- NOTE | 2017-02-28 11:30 | NUR ---
PT LEFT UNIT VIA WHEELCHAIR, ACCOMPANIED BY GRANDSONKARLEE NOTED.
--- NOTE | 2017-03-01 07:51 | DS ---
PATIENT:LIA GREER :[birth year] MEDICAL RECORD: [id number] DISCHARGE SUMMARY ADMISSION DATE: 02/22/17 DISCHARGE DATE: 02/28/17 DATE OF ADMISSION: 02/22/2017 DATE OF DISCHARGE: 02/28/2017 ADMISSION DIAGNOSES: Sepsis secondary to urinary tract infection and colitis. DISCHARGE DIAGNOSES: Sepsis secondary to urinary tract infection, colitis, liver lesion. CONSULTS: Interventional radiology for liver biopsy, GI. HOSPITAL COURSE: The patient was admitted to the Emergency Room after failed outpatient treatment from an urgent care for her urinary tract infection. Cultures were obtained. The patient was started on empiric antibiotics. White count on admission was 23,700. She had some episodes of diarrhea. She has a history of recurrent C. diff. She had recent fecal transplants, C. diff cultures negative. GI consulted. Urine grew out E. coli. The patient continued to improve. Scan revealed a small liver lesion, underwent biopsy. Pathology pending. The patient is feeling much better, ambulating independently, anxious to go home. The patient remains afebrile. Discharged home in significantly improved condition. PHYSICAL EXAMINATION: VITAL SIGNS: On discharge, temperature 98.2, blood pressure 167/84, heart rate 79, respirations 18, O2 sats 91% on room air. GENERAL: Alert, oriented, no acute distress, very anxious to go home. HEART: Regular rate and rhythm. LUNGS: Clear. ABDOMEN: Soft, nontender. Bowel sounds all 4 quadrants. EXTREMITIES: Present times 4, no edema. NEUROLOGIC: Intact. Lab reviewed. DISCHARGE MEDICATIONS: Per med rec. Will include home health. We will follow up in the clinic in 10 days. Please see chart for further details. TRANSINT:[id number] Voice Confirmation ID: [id number] DOCUMENT ID: [id number] STEPHANIE PRICE DO at 0751 CC: [id number] DICTATION DATE: 02/28/17 0740 MANAGER PRODUCT SUPPORT: 02/28/17 0813 DIS IN 02/28/17 [place] [id number] [place] [id number]
== END 2017-02-28 11:30 | disposition home health service (06) | DRG 872 ==
LOC: D.ER 11:29 → D.M2 13:12
PROVIDERS: Emergency Medicine; Family Medicine; General Practice; ADMIT Family Medicine
PROC: 0FB13ZX Excision of Right Lobe Liver, Percutaneous Approach, Diagnostic (ICD-10-PCS; principal; 2017-02-27)
DX: A41.9 Sepsis, unspecified organism (principal); N39.0 Urinary tract infection, site not specified; K57.92 Diverticulitis of intestine, part unspecified, without perforation or abscess without bleeding; I10 Essential (primary) hypertension; B96.20 Unspecified Escherichia coli [E. coli] as the cause of diseases classified elsewhere; K76.9 Liver disease, unspecified; F32.9 Major depressive disorder, single episode, unspecified; K52.9 Noninfective gastroenteritis and colitis, unspecified

== ENCOUNTER 2017-03-14 17:45 | Inpatient (IN) | payer MEDICARE, OTHER ==
[~2017-03-14] VITALS: Ht 170.2 cm; Wt 65.3 kg
[~2017-03-14 17:45] MED LIST changes: +FLAGYL250 MG PO; +MACROBID100 MG PO; +PEPCID20 MG PO
[2017-03-14 18:48] LABS: BASOPHILS 0.3 % (0-2); EOSINOPHILS 0.1 % (0-7); HEMATOCRIT 35.2 % (36.0-48.0); HEMOGLOBIN 11.3 g/dL (12-16); IMMATURE GRANULOCYTES 0.3 % (0-5); LYMPHOCYTES 3.5 % (15-50); MCHC 32.1 g/dL (31.0-37.0); MCV 90.5 fL (80.0-100.0); MEAN PLATELET VOLUME 10.5 fL (7.4-10.4); MONOCYTES 10.8 % (2-11); RBC 3.89 10x6/uL (4.00-5.40); RDW 15.8 % (11.5-14.5); WBC 15.5 10x3/uL (4.8-10.8)
[2017-03-14 19:20] LABS: PLATELET COUNT 241 10x3/uL (130-400)
[2017-03-14 20:07] LABS: APPEARANCE HAZY (CLEAR); BILIRUBIN NEGATIVE (NEGATIVE); COLOR YELLOW (YELLOW); GLUCOSE NEGATIVE (NEGATIVE); KETONE NEGATIVE (NEGATIVE); LEUKOCYTE ESTERASE 1+ (NEGATIVE); NITRITE NEGATIVE (NEGATIVE); PROTEIN 1+ mg/dL (NEGATIVE); UROBILINOGEN NORMAL (NORMAL)
[2017-03-14 20:09] LABS: BACTERIA MANY /hpf (NONE SEEN); EPITHELIAL CELLS 0-5 /hpf (0-5); RED CELLS - URINE 0-5 /hpf (0-5)
[2017-03-14 20:45] LABS: ALBUMIN 2.6 g/dL (3.4-5.0); ANION GAP 18.1 mmol/L (8-16); BILIRUBIN - TOTAL 0.51 mg/dL (0.2-1.3); CALCIUM 8.2 mg/dL (8.5-10.1); CARBON DIOXIDE 22.8 mmol/L (21.0-32.0); POTASSIUM - SERUM 3.9 mmol/L (3.5-5.1); PROTEIN - SERUM 6.7 g/dL (6.4-8.2)
[2017-03-15] VITALS (7 sets, daily range): BP systolic 124–151; BP diastolic 58–83; Ht 170.2 cm; Wt 65.3 kg
--- NOTE | 2017-03-15 05:37 | NUR ---
PT RESTING COMFORTABLY, IN NO ACUTE DISTRESS. PT EASILY ROUSABLE TO VERBAL STIMULI, DENIES ANY NEEDS. CONTINUE TO MONITOR CLOSELY. BED LOW, CALL LIGHT IN REACH, SIDE RAILS X 2, HOB 30 DEGREES, BED ALARM ON.
--- NOTE | 2017-03-15 08:07 | NUR ---
AM ROUNDS - PT IS IN BED AND AWAKE. PYELLOW BAND ON. SIDE RAILS UP X2. CALL NELSON IN USE/REACH. PT HAS NON SKID SLIPPERS ON. 2L O2 VIA NC. IV TO LEFT FA, SL. MONITOR SHOWING SR, HR 80. NO NEEDS AT THIS TIME. WILL CONTINUE TO MONITOR
--- NOTE | 2017-03-15 17:36 | NUR ---
Patient Name: LIA GREER Admission Status: ER Accout number: [id number] Admission Date: 03-14-2017 : 1935 Admission Diagnosis: Attending: STEPHANIE PRICE Current LOS: 1 Anticipated DC Date: Planned Disposition: Inpatient Rehab Primary Insurance: MEDICARE A & B PLANNED EXTERNAL PROVIDER: [facility] Discharge Planning Comments: * Is the patient Alert and Oriented? Yes 0 * How many steps to enter\exit or inside your home? 13+ W/LIFT 0 * PCP DR. PRICE 0 * Pharmacy [facility] 0 * Preadmission Environment Home Alone 0 * ADLs Partial Dependent 0 * Partial ADLs (Assistance needed) Medication Management 0 * Equipment Bedside Commode Cane Elevated [place] Seat Shower Chair Walker 0 * Other Equipment NO MEDICAL EQUIPMENT PROVIDER PREFERENCE 0 * List name and contact numbers for known caregivers / representatives who currently or will assist patient after discharge: BRYSON NOLASCO, OR XANDER, 0 * Community resources currently utilized Home Health Private Duty Care 0 * Please name any agencies selected above. [facility], 6 HOURS DAILY, ALL DAY MONDAY 0 * Additional services required to return to the preadmission environment? Yes * Can the patient safely return to the preadmission environment? No 0 * Has this patient been hospitalized within the prior 30 days at any hospital? Yes 0 CM RECEIVED ORDER TO DISCUSS PLACEMENT WITH FAMILY. CM MET WITH PT IN ROOM TO DISCUSS DISCHARGE PLANNING AND NEEDS. PT REPORTS LIVING AT HOME INDEPENDENTLY AND ALONE. PT REPORTS NO HOME HEALTH. PT REPORTS HAVING ALL NEEDED MEDICAL EQUIPMENT AND NO OUTSIDE SERVICES ASSISTING IN THE HOME. CM ASKED ABOUT [facility], PT REPORTS THEY DO NOT COME ANYMORE. CM DISCUSSED AVAILABILITY OF HOME HEALTH, REHAB SERVICES AND MEDICAL EQUIPMENT. PT DENIES DISCHARGE NEEDS, REPORTS SHE IS NOT GOING TO REHAB OR A USP. PT REPORTS SHE WILL BE GOING HOME AT DISCHARGE. REPORTS HER DAUGHTER WILL PICK HER UP FOR DISCHARGE HOME. PT IS NOT AWARE OF HOW LONG SHE HAS BEEN IN THE HOSPITAL, DOES NOT KNOW WHY SHE IS HERE AND REPORTS HER DAUGHTER SENT HER HERE. PT REPORTS THAT HER SON, JENN, IS HER POWER OF MAGAZINE FILLER IF THAT IS EVER NEEDED. CM CALLED PT'S LISTED EMERGENCY CONTACTS, BRIANNA REYNOLDS, ; TIFFANY REPORTS THAT PT HAS HOME HEALTH WITH [facility], PERSONAL CARE WITH [facility] AND FAMILY ASSISTING IN THE HOME. TIFFANY REPORTS HIS MOTHER, BRYSON NOLASCO, WILL BE MAKING DISCHARGE PLANS FOR PATIENT. CM CALLED BRYSON NOLASCO, , LEFT MESSAGE ASKING FOR RETURN CALL. CM RECEIVED RETURN CALL FROM BRYSON NOLASCO, , WHO IS A TEACHER AND WILL BE AT THE HOSPITAL SHORTLY, AFTER 4PM. BRYSON ARRIVED, SPOKE TO CM IN ROOM. PLACEMENT OPTIONS DISCUSSED FOR REHAB AND HALFWAY CARE. BRYSON CALLED HER BROTHER JENN, CM CONFERENCED WITH JENN AND BRYSON. OPTIONS DISCUSSED. JENN AND BRYSON DECIDED THAT THEY WOULD LIKE PT TO BE REFERRED TO [facility] INPATIENT REHAB PT HAS BEEN THERE BEFORE AND WILL MORE LIKELY PARTICIPATE THERE AND DURING THAT TIME, JENN WILL BEING [facility] PLACEMENT PLANNING FOR PT. PLAN B WILL BE SNF FACILITY IF NOT ACCEPTED FOR INPATIENT REHAB. IMPORTANT MESSAGE FROM MEDICARE PROVIDED AND DISCUSSED. LISTING OF SNF FACILITIES PROVIDED AND DISCUSSED. CM NOTIFIED DR. PRICE VIA PHONE, RECEIVED ORDER FOR PHYSICAL THERAPY EVALUATION AND INPATIENT REHAB PRECREENING. CM SPOKE TO CM MEDICAID ANALYST TD VIA PHONE, DISCUSSED ABOVE INFORMATION AND RECEIVED APPROVAL FOR REFERRAL TO [facility] INPATIENT REHAB. CM TO SEND REFERRAL FOR INPATIENT REHAB TO [facility] INPATIENT REH[facility]. CM WAITING RESULTS OF PHYSICAL THERAPY EVALUATION. Solution Professional: Osmin Rene
--- NOTE | 2017-03-15 19:40 | NUR ---
RECEIVED REPORT, WILL ASSUME CARE OF PT, DENIES ANY NEEDS, BED IS LOW, SRX2, CALL LIGHT IN REACH, WILL CONTINUE PLAN OF CARE
--- NOTE | 2017-03-16 01:31 | NUR ---
CALL LIGHT IN REACH, WILL CONTINUE WITH PLAN OF CARE.
--- NOTE | 2017-03-16 04:08 | NUR ---
ASSESSMENT COMPLETE, SEE FLOWSHEET, PT SLEEPING AT THIS TIME, BED IS LOW, SRX2, CALL LIGHT IN REACH, WILL CONTINUE PLAN OF CARE
[2017-03-16 04:12] LABS: BASOPHILS 0.2 % (0-2); EOSINOPHILS 1.6 % (0-7); HEMATOCRIT 34.3 % (36.0-48.0); HEMOGLOBIN 10.9 g/dL (12-16); IMMATURE GRANULOCYTES 0.3 % (0-5); LYMPHOCYTES 10.7 % (15-50); MCH 28.8 pg (26.0-34.0); MCHC 31.8 g/dL (31.0-37.0); MCV 90.5 fL (80.0-100.0); MONOCYTES 15.9 % (2-11); NEUTROPHILS 71.3 % (40-80); PLATELET COUNT 280 10x3/uL (130-400); RBC 3.79 10x6/uL (4.00-5.40); RDW 15.6 % (11.5-14.5)
[2017-03-16 04:14] LABS: WBC 10.6 10x3/uL (4.8-10.8)
[2017-03-16 04:28] LABS: ALBUMIN 2.3 g/dL (3.4-5.0); BILIRUBIN - TOTAL 0.39 mg/dL (0.2-1.3); CALCIUM 8.7 mg/dL (8.5-10.1); CREATININE - SERUM 1.2 mg/dL (0.6-1.3); PROTEIN - SERUM 7.1 g/dL (6.4-8.2)
[2017-03-16 04:32] LABS: ANION GAP 6.6 mmol/L (8-16); CARBON DIOXIDE 36.2 mmol/L (21.0-32.0); POTASSIUM - SERUM 2.8 mmol/L (3.5-5.1)
[2017-03-16 05:11] VITALS: BP 149/74
--- NOTE | 2017-03-16 07:30 | NUR ---
REPORT RECIEVED. PT RESTING QUIETLY, DENIES NEEDS AT THIS TIME. RR EVEN AND UNALBORED, ASSESSMENT PERFORMED. BED IN LOWEST POSTION, CALL NELSON IN REACH, WILL CTM.
--- NOTE | 2017-03-16 07:57 | HP ---
PATIENT: LIA GREER MEDICAL RECORD: [id number] ACCOUNT: [id number] LOCATION:[address] : 35 ADMISSION DATE: 03/14/17 HISTORY AND PHYSICAL EXAMINATION Admission History and Physical HISTORY OF PRESENT ILLNESS: An 81-year-old female brought in to the Emergency Room with generalized weakness, worsening confusion, low-grade temperature. PAST MEDICAL HISTORY: Significant for recurrent Clostridium difficile colitis, has had a recent stool implantation via EGD, history of depression, epilepsy, hypertension, recurrent UTIs, dementia, heart disease. SOCIAL HISTORY: , lives with her family. CURRENT MEDICATIONS: Coreg 3.125 mg daily, amlodipine 5 mg daily, Zoloft 50 mg q.h.s., Keppra 500 mg b.i.d., Benemid 500 mg b.i.d., Pepcid 20 mg daily, Florajen daily. ALLERGIES: LISTED CODEINE, HYDROCODONE, VANCOMYCIN, AND CORTISONE. REVIEW OF SYSTEMS: GENERAL: Limited secondary to the patient's dementia. Denies any significant complaints. HEENT: Denies cephalgia, visual changes, tinnitus, epistaxis or dysphagia. CARDIOVASCULAR: Denies chest pain, denies palpitations. PULMONARY: Denies hemoptysis, denies shortness of breath. GASTROINTESTINAL: History as above. Denies hematemesis, hematochezia or melena. Denies any present diarrhea. GENITOURINARY: Admits to frequency. MUSCULOSKELETAL: No acute changes. ENDOCRINE: Denies polyuria, polydipsia or polyphagia. PHYSICAL EXAMINATION: VITAL SIGNS: Temperature on admission was 100.2, presently 98.2; blood pressure 151/82, heart rate 75, respirations 16, O2 sats 97% on room air. GENERAL: Alert and oriented to person. No acute distress. HEENT: Head is normocephalic, atraumatic. Eyes: Pupils are equally round and reactive. Ears: Canals patent, TMs are intact. Nose: Nares patent without drainage. Throat: No erythema, no exudates. NECK: Supple. No lymphadenopathy, no JVD. HEART: Regular rate and rhythm. LUNGS: Clear to auscultation bilaterally. Breathing is nonlabored. ABDOMEN: Soft and nontender. Bowel sounds all 4 quadrants. EXTREMITIES: Present times 4, no edema. NEUROLOGIC: No focal deficits. SKIN: Warm and dry. No rash. LABORATORY DATA: Urinalysis, yellow, clear, 1+ protein, 1+ leukocyte esterase, 10-25 wbc's per high-powered field, many bacteria. Urine culture is pending. CBC: White count 15.5, hemoglobin 11.3, hematocrit 35.2, and platelets 241. Chemistry shows sodium of 136, potassium 3.9, chloride 99, bicarbonate 22.8, BUN 18, creatinine 1.0. Glucose 137. Blood culture is pending. HISTORY AND PHYSICAL [id number] LIA GREER DIAGNOSTIC DATA: Chest x-ray: Interstitial prominence and mild central pulmonary vascular congestion compatible with mild CHF, questionable left pleural effusion, no focal airspace consolidation. ASSESSMENT AND PLAN: 1. Leukocytosis. 2. Urinary tract infection. Rocephin 1 g q. daily. 3. Recurrent Clostridium difficile. We will check stool. Continue probiotics. 4. She has a 2-cm mass, right lobe of the liver, underwent biopsy, which showed necrotic tissue. No neoplasia, no neoplastic process. We will repeat MRI, status post biopsy, evaluate for changes. Also, possible infectious process with the leukocytosis. 5. Dementia. Case management for possible placement options and coordinate care with family. TRANSINT:[id number] Voice Confirmation ID: [id number] DOCUMENT ID: [id number] STEPHANIE PRICE DO at 0757 CC: [id number] DICTATION DATE: 03/15/17821 COMMISSARY AGENT: 03/15/17 1028 ADM IN [place] [address] [place] [address]
[2017-03-16 08:33] VITALS: BP 155/77
--- NOTE | 2017-03-16 11:00 | NUR ---
PTS IV INFILTRATED. ATTEMPTED A 22G X2 STICK AND I WAS UNSUCCESSFUL. CONTACTED SANGEETA AT 1130 ABOUT NEW IV START. REPORTED THAT SHE WOULD COME AND RESTART IV. WILL CTM. WILL GIVE IV LASIX WHEN NEW IV IS STARTED.
--- NOTE | 2017-03-16 11:33 | NUR ---
Patient Name: LIA GREER Encounter No: [id number] : 1935 Primary Insurance: MEDICARE A & B Anticipated DC Date: 03-17-2017 Planned Disposition: Inpatient Rehab External Planned Provider[facility] DCP follow-up note: CM FAXED REFERRAL TO [facility], . CM SPOKE TO ALEJANDRO VIA PHONE, , WHO REPORTS NO BED AVAILABLE TODAY, WILL HAVE ONE TOMORROW AND SHE WILL SCREEN PT TODAY FOR INPATIENT REHAB ADMISSION. CM WAITING ADMISSION DETERMINATION FROM [facility]. Osmin Rene, CASE MANAGEMENT
[2017-03-16 12:01] VITALS: BP 128/72
--- NOTE | 2017-03-16 12:35 | NUR ---
ALL 3 DOSES OF POTASSIUM GIVEN. ORDERED LAB FOR 4 HRS FROM NOW PER PROTOCOL.
[2017-03-16 15:34] VITALS: BP 131/67
--- NOTE | 2017-03-16 16:00 | NUR ---
SANDRA CHAU RN STARTED 20G IV IN LEFT FOREARM. GAVE LASIX THAT COULD NOT BE GIVEN THIS MORNING DUE TO NO IV ACCESS.
--- NOTE | 2017-03-16 18:28 | NUR ---
PT RESTING QUIETLY, DENIES NEEDS AT THIS TIME. RR EVEN AND UNLABORED, FAMILY AT BEDSIDE, WILL GIVE REPORT ON PT CONDITION FOR THE DAY.
[2017-03-16 19:00] VITALS: BP 123/68
[2017-03-17] VITALS: BP 134/72
--- NOTE | 2017-03-17 03:21 | NUR ---
ASSESSMENT COMPLETE, SEE FLOWSHEET, PT HAS BEEN SLEEPING MOST OF NIGHT, BED IS LOW, SRX2, CALL LIGHT IN REACH, WILL CONTINUE PLAN OF CARE
--- NOTE | 2017-03-17 04:05 | NUR ---
CHILD CENTER ASSISTANT AT BEDSIDE TO OBTAIN VITALS, CALL LIGHT IN REACH. WILL CONTINUE WITH PLAN OF CARE.
[2017-03-17 06:24] LABS: HEMATOCRIT 37.8 % (36.0-48.0); LYMPHOCYTES 12.1 % (15-50); MCH 28.2 pg (26.0-34.0); MCHC 31.7 g/dL (31.0-37.0); MCV 88.7 fL (80.0-100.0); MEAN PLATELET VOLUME 10.8 fL (7.4-10.4); NEUTROPHILS 76.6 % (40-80); PLATELET COUNT 302 10x3/uL (130-400); RBC 4.26 10x6/uL (4.00-5.40); RDW 15.3 % (11.5-14.5); WBC 11.1 10x3/uL (4.8-10.8)
[2017-03-17 06:40] LABS: CARBON DIOXIDE 32.7 mmol/L (21.0-32.0); MAGNESIUM - SERUM 1.6 mg/dL (1.8-2.4)
[2017-03-17 06:50] LABS: ANION GAP 10.3 mmol/L (8-16); CALCIUM 9.4 mg/dL (8.5-10.1); CREATININE - SERUM 1.3 mg/dL (0.6-1.3)
--- NOTE | 2017-03-17 07:30 | NUR ---
PT RESTING QUIETLY, INCONTINENT OF URINE. DIRECT CHILL CASTER CHANGED PT. RR EVEN AND UNLABORED, WILL CTM.
[2017-03-17 08:00] VITALS: BP 161/94
--- NOTE | 2017-03-17 08:43 | NUR ---
Patient Name: LIA GREER Encounter No: [id number] : 1935 Primary Insurance: MEDICARE A & B Anticipated DC Date: 03-17-2017 Planned Disposition: Inpatient Rehab External Planned Provider: [facility] DCP follow-up note: ROSSANA CALLED AND SPOKE TO CHRISTIANNE OF [facility], , REQUESTED ADMISSION DETERMINATION FOR DISCHARGE THIS MORNING; CHRISTIANNE REPORTS SHE THINKS THE SCREEN CAME OUT POSITIVELY BUT WILL CONTACT EJ VIA PHONE FOR DETERMINATION AND EJ WILL CALL ROSSANA SHORTLY. ROSSANA CONTINUES TO AWAIT ADMISSION DETERMINATION FROM [facility]. Osmin Rene, CASE MANAGEMENT
--- NOTE | 2017-03-17 09:08 | NUR ---
POTASSIUM LOW - 3.0 GAVE 40MEQ OF POTASSIUM, WILL RECHECK LAB IN 4 HRS.
[2017-03-17 13:33] VITALS: BP 131/83
--- NOTE | 2017-03-17 15:15 | NUR ---
CALLED DR. HARRIS'S OFFICE MULTIPLE TIMES AND SAAD GROSS LEFT A MESSAGE REGARDING PT ACCEPTANCE TO [facility]. DISCHARGE ORDERS NEEDED, AWAITING CALL BACK FROM DR. HARRIS FOR DISCHARGE.
--- NOTE | 2017-03-17 15:52 | NUR ---
Patient Name: LIA GREER Encounter No: [id number] : 1935 Primary Insurance: MEDICARE A & B Anticipated DC Date: 03-17-2017 Planned Disposition: Shelter Facility External Planned Provider: [facility], MEDICARE REHAB BED DCP follow-up note: CM CALLED FRITZ AT [facility], , WHO REPORTED THAT FAMILY IS THERE NOW FILLING OUT ADMISSION PAPERWORK AND THEY WILL ACCEPT PT FOR REHAB TODAY. CM NOTIFIED [employer] USER INTERFACE DEVELOPER AND BEDSIDE NURSE. FOR DISCHARGE, FAX DISCHARGE INFORMATION TO [facility] AT [phone]. NURSE REPORT TO BE CALLED TO [facility] AT [phone]. [facility] TO ARRANGE VAN TRANSPORT. Osmin Rene, CASE MANAGEMENT
[2017-03-17] MEDS ORDERED: CEFUROXIME250 MG PO (16:05)
[2017-03-17] MEDS ORDERED: FUROSEMIDE40 MG PO (16:07)
[2017-03-17] MEDS ORDERED: POTASSIUM CHLO10 ME1 PO (16:08)
--- NOTE | 2017-03-17 18:05 | NUR ---
PT RESTING QUIETLY, RR EVEN AND UNLABORED. PT TO BE TRANSPORTED TO REHAB AT 1900. WILL GIVE REPORT ON PT CONDITION FOR THE DAY.
--- NOTE | 2017-03-17 19:12 | NUR ---
PT DISCHARGED. DISHCHARGE INSTRUCTIONS PROVIDED AND SIGNED. [facility] HERE TO PICK PT UP AND TAKE TO REHAB VIA WHEELCHAIR. IV REMOVED WITH CATHETER TIP INTACT, DRESSING APPLIED. TELEMETRY REMOVED AND RETURNED TO SUPERVISOR BOATBUILDERS WOOD. RR EVEN AND UNLABORED. VERBALIZED SATISFACTION WITH CARE.
== END 2017-03-17 19:20 | DRG 690 ==
LOC: D.ER 17:45 → D.M2 23:50
PROVIDERS: Family Medicine; ADMIT Family Medicine
DX: N39.0 Urinary tract infection, site not specified (principal); R41.0 Disorientation, unspecified; F32.9 Major depressive disorder, single episode, unspecified; I10 Essential (primary) hypertension; F03.90 Unspecified dementia, unspecified severity, without behavioral disturbance, psychotic disturbance, mood disturbance, and anxiety; R16.0 Hepatomegaly, not elsewhere classified; E87.6 Hypokalemia; E87.70 Fluid overload, unspecified

== ENCOUNTER 2017-03-22 15:37 | Inpatient (IN) | payer MEDICARE, OTHER ==
[~2017-03-22] VITALS: Ht 170.2 cm; Wt 64.4 kg
[~2017-03-22 15:37] MED LIST changes: +CEFUROXIME250 MG PO; +FUROSEMIDE40 MG PO; +POTASSIUM CHLO10 ME1 PO
[2017-03-22 17:27] LABS: HEMATOCRIT 35.6 % (36.0-48.0); HEMOGLOBIN 11.4 g/dL (12-16); MCH 28.6 pg (26.0-34.0); MCV 89.4 fL (80.0-100.0); MEAN PLATELET VOLUME 9.8 fL (7.4-10.4); PLATELET COUNT 303 10x3/uL (130-400); RBC 3.98 10x6/uL (4.00-5.40); RDW 15.7 % (11.5-14.5); WBC 25.6 10x3/uL (4.8-10.8)
[2017-03-22 17:59] LABS: ALBUMIN 2.3 g/dL (3.4-5.0); ANION GAP 9.6 mmol/L (8-16); BILIRUBIN - TOTAL 0.37 mg/dL (0.2-1.3); CALCIUM 9.2 mg/dL (8.5-10.1); CARBON DIOXIDE 30.5 mmol/L (21.0-32.0); CREATININE - SERUM 1.4 mg/dL (0.6-1.3); POTASSIUM - SERUM 3.1 mmol/L (3.5-5.1); PROTEIN - SERUM 7.4 g/dL (6.4-8.2)
[2017-03-22 18:02] LABS: EOSINOPHILS 1 % (0-7); LYMPHOCYTES 4 % (15-50); MONOCYTES 2 % (2-11); NEUTROPHILS 93 % (40-80); PLATELET ESTIMATE NORMAL
[2017-03-22 18:22] LABS: APPEARANCE CLEAR (CLEAR); BILIRUBIN NEGATIVE (NEGATIVE); COLOR YELLOW (YELLOW); GLUCOSE NEGATIVE (NEGATIVE); KETONE NEGATIVE (NEGATIVE); LEUKOCYTE ESTERASE 1+ (NEGATIVE); NITRITE NEGATIVE (NEGATIVE); PROTEIN TRACE mg/dL (NEGATIVE); SPECIFIC GRAVITY 1.015 (1.005-1.020); UROBILINOGEN NORMAL (NORMAL)
[2017-03-22 18:23] LABS: BACTERIA FEW /hpf (NONE SEEN); EPITHELIAL CELLS 0-5 /hpf (0-5); RED CELLS - URINE OCC /hpf (0-5); WHITE CELLS - URINE 0-5 /hpf (0-5)
[2017-03-23] VITALS (7 sets, daily range): BP systolic 114–164; BP diastolic 39–78; Ht 170.2 cm; Wt 64.4 kg
--- NOTE | 2017-03-23 00:07 | NUR ---
PT RECEIVED VIA STRETCHER, AWAKE, ALERT, MILD CONFUSION BUT ORIENTED AT THIS TIME. PT DOES HAVE A HX OF DEMENTIA. PT STATES SHE LIVES AT HOME, AND HAS FAMILY COMING IN THROUGHOUT THE DAY CHECKING ON HER, MAKING HER MEALS, AND MAKING SURE SHE TAKES HER MEDICINE. PT DENIES LIVING IN A DETENTION. PT IS UNABLE TO GIVE A DETAILED HEALTH HX, AND THERE IS NO FAMILY PRESENT AT THIS TIME. PT DOES REMEMBER HAVING C-DIFF BEFORE, STATING IT WAS 2-3 YEARS AGO. PT HAS HAD NONSTOP RUNNY STOOL, UNABLE TO BE CONTROLLED AT THIS TIME. PT HAS HAD MULTIPLE BOWEL INCONTINENT EPISODES JUST WITHIN THE LAST 30 MINUTES OR LESS. BEDSIDE COMMODE PLACED, PT GIVEN CALL LIGHT WITH DEMONSTRATION ON HOW AND WHEN TO USE IT. SIDE RAILS X 2 ARE RAISED FOR PT SAFETY, PT HAS BEEN INSTRUCTED NOT GET UP WITHOUT CALLING FOR ASSISTANCE FIRST. BED ALARM IS ON. CONTINUE TO MONITOR PT CLOSELY.
[2017-03-23] MEDS ORDERED: FLORANEX / LACT1 TAB PO (02:09)
--- NOTE | 2017-03-23 05:49 | NUR ---
PT RESTING COMFORTABLY, EASILY ROUSABLE TO VERBAL STIMULI. PT DENIES ANY NEEDS. WHILE ASSISTING PT TO BEDSIDE COMMODE, I NOTICED PT WIPING FROM BACK TO FRONT. MYSELF AND HAYDEN JOHNSON DID DEMONSTRATE TO PT HOW TO WIPE PROPERLY AND EXPLAINED THAT WIPING INCORRECTLY CAN CAUSE UTI'S. PT STATES SHE WILL WIPE FRONT TO BACK, HOWEVER, PT DID DEMONSTRATE GREAT DIFFICULTY TRYING TO DO SO. PT TO CALL WHEN NEEDING ANY ASSISTANCE. CONTINUE TO MONITOR CLOSELY. BED LOW, CALL LIGHT IN REACH, SIDE RAILS X 2, HOB 20 DEGREES, BED ALARM ON.
--- NOTE | 2017-03-23 07:55 | NUR ---
AM ROUNDS - PT APPEARS TO BE SLEEPING WITH EQUAL AND NON LABORED BREATHING. IV TO RIGHT WRIST LR AT 100CC/HR. YELLOW BAND ON. BED AT LOWEST POSITION. SIDE RAILS UP X2. CALL NELSON IN USE/REACH. WILL CONTINUE TO MONITOR
--- NOTE | 2017-03-23 18:13 | NUR ---
PT IS RESTING IN BED WITH NO NEEDS AT THIS TIME. WILL CONTINUE TO MONITOR
--- NOTE | 2017-03-23 18:15 | NUR ---
Patient Name: LIA GREER Admission Status: ER Accout number: [id number] Admission Date: 03-22-2017 : 1935 Admission Diagnosis: Attending: STEPHANIE PRICE Current LOS: 1 Anticipated DC Date: Planned Disposition: Penitentiary Facility Primary Insurance: MEDICARE A & B PLANNED EXTERNAL PROVIDER: [facility], MEDICARE REHAB BED Discharge Planning Comments: * Is the patient Alert and Oriented? Yes 0 * How many steps to enter\exit or inside your home? 13+ W/LIFT 0 * PCP DR. PRICE 0 * Pharmacy [facility] 0 * Preadmission Environment Penitentiary Facility 0 * Facility Name [facility] 0 * ADLs Partial Dependent 0 * Partial ADLs (Assistance needed) Ambulation Bathing Medication Management Transfers 0 * Equipment Other 0 * Other Equipment ALL MEDICAL EQUIPMENT PROVIDED BY FACILITY 0 * List name and contact numbers for known caregivers / representatives who currently or will assist patient after discharge: BRYSON NOLASCO, OR [employer], 0 * Community resources currently utilized None 0 * Please name any agencies selected above. NONE 0 * Additional services required to return to the preadmission environment? Yes * Can the patient safely return to the preadmission environment? Yes 0 * Has this patient been hospitalized within the prior 30 days at any hospital? Yes 0 CM RECEIVED ORDER FOR PLACEMENT, MET WITH PT IN ROOM TO DISCUSS DISCHARGE NEEDS AND PLANNING. PT REPORTS SHE WAS AT [facility] AND WILL RETURN THERE AT DISCHARGE TO CONTINUE REHAB SERVICES. CM TO CALL [facility], , TOMORROW TO ENSURE PT WILL BE ACCEPTED BACK FOR CONTINUED REHAB AT DISCHARGE FROM HOSPITAL. Osmin Rene, CASE MANAGEMENT
[2017-03-24] VITALS: BP 127/66
--- NOTE | 2017-03-24 00:07 | NUR ---
NURSE ROUNDS 03/23/17 21:00 - PT LYING IN BED, AWAKE, ALERT, ORIENTED, RESTING COMFORTABLY, STILL WITH UNCONTROLLED DIARRHEA/INCONTINENCE. PT DENIES ANY NEEDS. CONTINUE TO MONITOR CLOSELY. BED LOW, CALL LIGHT IN REACH, SIDE RAILS X 2, HOB 30 DEGREES, BED ALARM ON.
[2017-03-24 04:00] VITALS: BP 147/67
--- NOTE | 2017-03-24 05:14 | NUR ---
PT RESTING COMFORTABLY, EASILY ROUSABLE TO VERBAL STIMULI, DENIES ANY NEEDS. CONTINUE TO MONITOR CLOSELY. BED LOW, CALL LIGHT IN REACH, SIDE RAILS X 2, HOB 30 DEGREES, BED ALARM ON.
[2017-03-24 05:19] LABS: BASOPHILS 0.1 % (0-2); EOSINOPHILS 3.6 % (0-7); HEMATOCRIT 31.6 % (36.0-48.0); IMMATURE GRANULOCYTES 0.4 % (0-5); LYMPHOCYTES 10.4 % (15-50); MCH 28.2 pg (26.0-34.0); MCHC 31.6 g/dL (31.0-37.0); MEAN PLATELET VOLUME 11.2 fL (7.4-10.4); MONOCYTES 11.6 % (2-11); NEUTROPHILS 73.9 % (40-80); PLATELET COUNT 314 10x3/uL (130-400); RBC 3.55 10x6/uL (4.00-5.40); RDW 15.5 % (11.5-14.5); WBC 14.6 10x3/uL (4.8-10.8)
[2017-03-24 05:21] LABS: ALBUMIN 1.9 g/dL (3.4-5.0); BILIRUBIN - TOTAL 0.23 mg/dL (0.2-1.3); CALCIUM 8.2 mg/dL (8.5-10.1); CARBON DIOXIDE 32.7 mmol/L (21.0-32.0); CREATININE - SERUM 1.1 mg/dL (0.6-1.3); MAGNESIUM - SERUM 1.4 mg/dL (1.8-2.4); PHOSPHOROUS 2.3 mg/dL (2.5-4.9); PROTEIN - SERUM 6.2 g/dL (6.4-8.2)
[2017-03-24 05:22] LABS: ANION GAP 9.2 mmol/L (8-16); POTASSIUM - SERUM 2.9 mmol/L (3.5-5.1)
--- NOTE | 2017-03-24 07:57 | NUR ---
AM ROUNDS - PT IN BED AND APPEARS TO BE SLEEPING WITH EQUAL AND NON LABORED BREATHING. IV TO RIGHT WRIST, NS AT KVO. PT IS ON ENTERIC ISOLATION. BED AT LOWEST POSITION. SIDE RAILS UP X2. CALL NELSON IN USE/REACH. WILL CONTINUE TO MONITOR
[2017-03-24 07:59] VITALS: BP 133/64
--- NOTE | 2017-03-24 08:00 | HP ---
PATIENT: LIA GREER MEDICAL RECORD: [id number] ACCOUNT: [id number] LOCATION:[address] : [birth year] ADMISSION DATE: 03/22/17 HISTORY AND PHYSICAL EXAMINATION HISTORY OF PRESENT ILLNESS: An 82-year-old female. The patient was brought in from [facility], reports of altered lab values including an elevated Keppra level and increased white blood cell count. She had 1 or 2 episodes of diarrhea, has history of recurrent C. diff. She had low-grade fever. PAST MEDICAL HISTORY: Significant for recurrent C. diff colitis, she had recent stool implantation via EGD, history of depression, epilepsy, hypertension, moderate to advanced dementia, recurrent UTIs and heart disease. SOCIAL HISTORY: , presently lives at [facility]. ALLERGIES: LISTED CODEINE, HYDROCODONE, CORTISONE AND VANCOMYCIN. CURRENT MEDICATIONS: Carvedilol 3.125 mg b.i.d., amlodipine 5 mg daily, Keppra 500 mg b.i.d., Sertraline 50 mg p.o. at bedtime, Lasix 40 mg daily, probenecid 500 mg b.i.d., Pepcid 20 mg one-half tablet daily and Floranex 2 tabs daily. REVIEW OF SYSTEMS: GENERAL: No reported change in weight or appetite. HEENT: No cephalgia, visual changes, tinnitus, epistaxis, or dysphagia. CARDIOVASCULAR: Denies chest pain, denies palpitations. PULMONARY: Denies hemoptysis, denies night sweats. GASTROINTESTINAL: Denies hematemesis, hematochezia, or melena. Had 2 episodes of diarrhea yesterday, none thus far today. GENITOURINARY: Denies dysuria, denies change in frequency. MUSCULOSKELETAL: No acute changes. ENDOCRINE: Denies polyuria, polydipsia, or polyphagia. PHYSICAL EXAMINATION: VITAL SIGNS: Temp 96.6, temperature on admission 99.5, heart rate 87, respirations 18, blood pressure is 128/59, last one was 164/78 and O2 sats 95% on room air. HEENT: Head is normocephalic and atraumatic. Eyes: Pupils are equal, round, reactive to light and accommodation. Extraocular muscles intact. Conjunctiva was not injected. Ears: Canals patent, TMs are intact. Nose: Nares patent without drainage. Throat: No erythema, no exudates. NECK: Supple. No lymphadenopathy and no JVD. HEART: Regular rate and rhythm. No S3, S4. No rub. LUNGS: Clear to auscultation bilaterally. Breathing is nonlabored. ABDOMEN: Soft, mild diffuse tenderness, greater left upper quadrant. No rebound, no guarding and no palpable masses. EXTREMITIES: Present times 4, no edema. NEUROLOGIC: No focal deficits, answers appropriately, oriented to person. LABORATORY DATA: Urinalysis: Yellow, clear, trace protein, 1+ leukocyte esterase, few bacteria. CBC: White count 25.6, hemoglobin 11.4, hematocrit 35.6, platelets 303 and neutrophils 93%. Chemistry shows a sodium of 135, potassium 3.1, chloride 98, bicarbonate 30.5, BUN 28, creatinine 1.4 and glucose 111. Lactic acid 1.1, AST 11, ALT 4 and alkaline phosphatase 84. C. diff HISTORY AND PHYSICAL [id number] ZOEY,LIA G antigen and toxin positive. CT abdomen consistent with colitis. Blood culture is pending. ASSESSMENT AND PLAN: 1. Recurrent Clostridium difficile colitis. The patient was started on oral vancomycin and metronidazole IV in the ER. We will discontinue the vancomycin at this time due to reported allergy. 2. Seizure disorder. Continue Keppra. Check level in the a.m. 3. Dementia. Supportive care. crop grain or livestock farm manager for placement options when medically stable. TRANSINT:[id number] Voice Confirmation ID: [id number] DOCUMENT ID: [id number] STEPHANIE PRICE DO at 0800 CC: [id number] DICTATION DATE: 03/23/17 0742 INSTRUCTOR OF SOCIOLOGY: 03/23/17 1058 ADM IN [facility] [address] [place] [address]
--- NOTE | 2017-03-24 09:21 | NUR ---
Patient Name: LIA GREER Encounter No: [id number] : 1935 Primary Insurance: MEDICARE A & B Anticipated DC Date: 03-24-2017 Planned Disposition: Long-Term Facility External Planned Provider: [facility], MEDICARE REHAB BED DCP follow-up note: CM SPOKE TO DR. PRICE WHO REPORTS HE WANTS TO CHANGE PT TO PO ANTIBIOTICS AND DISCHARGE PT TODAY BACK TO [facility]. CM MET WITH PT IN ROOM WHO IS IN AGREEMENT WITH DISCHARGE TO REHAB BACK TO [facility]. CM DISCUSSED ELECTROMECHANICAL INSPECTOR CARE AND ASSISTED LIVING; PT REPORTS SHE IS NOT ARRANGING SENIOR LIVING CARE AND WILL RETURN TO REHAB WITH GOAL OF RETURNING HOME. PT STATES THAT IF NEEDED ONCE HOME, SHE HAS FAMILY TO ASSIST. IMPORTANT MESSAGE FROM MEDICARE PROVIDED AND EXPLAINED. CM CALLED [facility], , SPOKE TO FRITZ WHO ADVISED THAT PT IS IN A PRIVATE ROOM AT [facility] FOR REHAB AND THAT [facility] AND [facility] WILL CALL CM IN ABOUT ONE HOUR TO DISCUSS ADMISSION DETERMINATION FOR TODAY. CM FAXED UPDATED CHART INFORMATION TO [facility] AT [phone]. CM WAITING ADMISSION DETERMINATION FROM [facility]. Osmin Rene, CASE MANAGEMENT
[2017-03-24] MEDS ORDERED: FLAGYL500 MG PO (10:02)
--- NOTE | 2017-03-24 11:13 | NUR ---
Patient Name: LIA GREER Encounter No: [id number] : 1935 Primary Insurance: MEDICARE A & B Anticipated DC Date: 03-24-2017 Planned Disposition: Detention Facility External Planned Provider: [facility], MEDICARE REHAB BED DCP follow-up note: CM RECEIVED CALL FROM [facility] OF [facility], , WILL ACCEPT FOR REHAB RETURN TODAY. CM RECEIVED DISCHARGE ORDERS, FAXED DISCHARGE INFORMATION TO [facility] AT [phone]. NURSE REPORT TO BE CALLED TO [facility], [facility] NURSE, . [facility] TO ARRANGE VAN TRANSPORT. Osmin Rene, CASE MANAGEMENT
[2017-03-24 11:52] VITALS: BP 112/59
--- NOTE | 2017-03-24 15:58 | NUR ---
CALLED REPORT TO RAJIV CAM, AT [facility]. [facility] PROVIDING TRANSPORT. AWAITING TRANSPORT. WILL CONTINUE TO MONITOR
[2017-03-24 16:12] VITALS: BP 101/55
--- NOTE | 2017-03-24 16:51 | NUR ---
IV TO PT'S LEFT WRIST D/C, CATH TIP INTACT. 2X2 DRESSING APPLIED AND SECURED WITH TAPE. PT TOLERATED WELL. PT LEFT FLOOR VIA WHEELCHAIR WITH STAFF FROM [employer]. WILL D/C
== END 2017-03-24 16:55 | DRG 373 ==
LOC: D.ER 15:37 → D.M2 22:18
PROVIDERS: Nurse Practitioner Acute Care; ADMIT Family Medicine
DX: A04.7 Enterocolitis due to Clostridium difficile (principal); G40.909 Epilepsy, unspecified, not intractable, without status epilepticus; F03.90 Unspecified dementia, unspecified severity, without behavioral disturbance, psychotic disturbance, mood disturbance, and anxiety; I10 Essential (primary) hypertension

== ENCOUNTER 2017-08-31 19:04 | Inpatient (IN) | payer MEDICARE, OTHER ==
[~2017-08-31] VITALS: Ht 172.7 cm; Wt 66.0 kg
--- NOTE | ~2017-08-31 | HP ---
PATIENT: LIA GREER MEDICAL RECORD: [id number] ACCOUNT: [id number] LOCATION:[address] : 35 ADMISSION DATE: 08/31/17 HISTORY AND PHYSICAL EXAMINATION HISTORY OF PRESENT ILLNESS: The patient presented to the Emergency Room febrile, hypotensive, increasing confusion, moderate dementia, had a fall from her chair. PAST MEDICAL HISTORY: Significant for heart disease, recurrent Clostridium difficile colitis, dehydration, depression, dementia, epilepsy, liver lesions had resolved with last imaging. ALLERGIES: REPORTED CODEINE, HYDROCODONE, VANCOMYCIN, AND CORTISONE. CURRENT MEDICATIONS: Listed as amlodipine, carvedilol, Pepcid, cefuroxime, Lasix, Keppra, potassium, Zoloft. REVIEW OF SYSTEMS: GENERAL: Limited historian, lives at a residential, reported increasing confusion, although she has underlying dementia, appears atraumatic. HEENT: Head is normocephalic, atraumatic. Eyes; pupils are equally round and reactive. Ears; canals patent. TMs are intact. Nose; nares patent without drainage. Throat; no erythema, no exudates. NECK: Supple. No lymphadenopathy, no JVD. HEART: Regular rate and rhythm. LUNGS: No egophony. No appreciable rhonchi, mildly diminished breath sounds. Breathing is nonlabored. ABDOMEN: Soft and nontender. Bowel sounds in all 4 quadrants, although family reports that she has been complaining of abdominal pain. She does have hepatomegaly. EXTREMITIES: Present times 4, no edema. NEUROLOGIC: No new focal deficits. Alert to person. PHYSICAL EXAMINATION: VITAL SIGNS: Temperature 100.3, blood pressure is 89/61, heart rate 92, respirations 18, O2 sats 94% on room air. GENERAL: Alert to person. HEENT: Head is normocephalic, atraumatic. Eyes; pupils are equally round and reactive. Ears; canals patent. TMs are intact. Nose; nares patent without drainage. Throat; no erythema, no exudates. NECK: Supple. HEART: Regular rate and rhythm. LUNGS: Again, no rhonchi, mildly diminished breath sounds bilaterally. Breathing is nonlabored. ABDOMEN: Soft, hepatomegaly present. BACK: Present times 4. NEUROLOGIC: No focal deficits. She is alert to person, limited historian. LABORATORY DATA: CBC; white count 19,900, hemoglobin 13, hematocrit 40.5, platelets 303. Neutrophils 84.7%. Chemistry shows a sodium of 136, potassium 4.7, chloride 100, bicarbonate 25.5, BUN 26, creatinine 1.2. Lactic acid 0.8. AST 17, ALT is 2, alkaline phosphatase 135. CK is 23. ProBNP is 1311. Troponins is less than 0.017, albumin 2.5. Urinalysis; yellow, clear, 1+ protein, many bacteria. Cultures pending. CT chest without contrast, reticular HISTORY AND PHYSICAL [id number] ZOEY,LIA G nodular and tree-in-bud opacities in both lungs consistent with atypical multifocal pneumonia, ill-defined hypodensity in the central aspect of the liver 6.6 x 6.8 cm. This is new since last imaging. ASSESSMENT AND PLAN: 1. Multifocal pneumonia. Continue meropenem. Consult pulmonology. 2. A 6.6 x 6.8 cm liver mass. We will obtain CT abdomen and pelvis with IV contrast. 3. Blood cultures pending. 4. Dementia and supportive care. 5. Hypertension, originally hypotensive. We will gradually restart blood pressure medicines, monitor, supportive care. TRANSINT:[id number] Voice Confirmation ID: [id number] DOCUMENT ID: [id number] STEPHANIE PRICE DO at 0730 CC: [id number] DICTATION DATE: 09/01/17809 RAILWAY SIGNAL ELECTRICIAN: 09/01/17 0948 ADM IN [facility] [address] [place] [address]
--- NOTE | ~2017-08-31 | CN ---
PATIENT NAME:LIA SHOOK MEDICAL RECORD: [id number] : 35 LOCATION:[address] ADMIT DATE: 08/31/17 ACCOUNT: [id number] CONSULTING PHYSICIAN: JOSE LÓPEZ MD REFERRING PHYSICIAN: STEPHANIE PRICE DO DATE OF CONSULTATION: 09/01/2017 CONSULT REQUESTING PHYSICIAN: Dr. Stephanie Price. REASON FOR CONSULTATION: Atypical pneumonia. HISTORY OF PRESENT ILLNESS: Ms. Shook is an 82-year-old female who has a history of dementia and the patient is very confused. There is no family member and the patient's history was taken by reviewing the patient's note and talking to the nursing staff. The patient was brought to the ER yesterday with the fever. She was hypotensive and increasing confusion. She also had a fall from her chair. The patient was found to have significant leukocytosis. CT scan showed bilateral pneumonia as well as mass in the liver with pneumobilia. PAST MEDICAL HISTORY: 1. History of C diff colitis. 2. History of dehydration. 3. Depression. 4. Dementia. 5. Epilepsy. 6. Liver lesion. ALLERGIES: She is allergic to CODEINE, HYDROCODONE, VANCOMYCIN, and CORTISONE. CURRENT MEDICATIONS: She is on meropenem IV, Pepcid. All other medication is reviewed. PERSONAL SOCIAL HISTORY: The patient is a nonsmoker, nondrinker. FAMILY HISTORY: Noncontributory. PHYSICAL EXAMINATION: GENERAL: Now, the patient is lying comfortably in bed. She is not in acute distress. VITAL SIGNS: The blood pressure is 159/81, pulse is 88, respirations 17, temperature is 98.4, and SpO2 92% on room air. On arrival to the ER, her blood pressure was 89/61 with a fever of 100.3. HEENT: Conjunctivae are pink. Sclerae nonicteric. NECK: Neck is supple. No JVD. CHEST: There are bilateral crackles. No wheezing. HEART: Rhythm regular, normal sound, no murmur. ABDOMEN: Abdomen is soft. Bowel sounds present. No hepatosplenomegaly. RECTAL: Deferred. EXTREMITIES: No cyanosis, no clubbing, no pedal edema. SKIN: The skin is warm, normal turgor. CENTRAL NERVOUS SYSTEM: The patient is awake and alert. There are no obvious cranial nerve abnormalities. The gait was not tested. LABORATORY DATA AND DIAGNOSTIC STUDIES: CT scan of the chest, there is bilateral infiltrate, multilobar. There is some atelectasis. There are CONSULT REPORT [id number] ZOEY,LIA G tree-in-bud opacities in the right middle lobe, right lower lobe, and left lower lobe. There is also by 6.6 x 6.8 cm mass in the liver and there is also pneumobilia. CBC: WBC is 19.9, hemoglobin 13, hematocrit 40.5, and the platelet count is 303. Chemistry: Sodium 136, potassium 4.7, creatinine 1.2. Lactic acid 0.8. AST 17, ALT is 2. The proBNP is 1311. IMPRESSION: 1. Pneumonia, bilateral with tree-in-bud appearance, possible atypical pneumonia. 2. Liver mass, rule out malignant process. 3. Pneumobilia. 4. Febrile illness. 5. Systemic inflammatory response syndrome with a fever, leukocytosis, and hypotension. 6. [id number] mental status changes with underlying dementia. 7. Leukocytosis. RECOMMENDATION: Continue meropenem. I will add Levaquin. Followup labs and chest radiograph. The patient will need the liver workup. Dr. Price, thank you for involving me in the care Ms. Shook. TRANSINT:[id number] Voice Confirmation ID: [id number] DOCUMENT ID: [id number] JOSE LÓPEZ MD CC: STEPHANIE PRICE [id number] DICTATION DATE: 09/01/17 1558 UPPER LINING CEMENTER: 09/01/17 1648 ADM IN [place] [id number] [place] [address]
[~2017-08-31 19:04] MED LIST changes: +FLORANEX / LACT1 TAB PO
[2017-08-31 19:50] LABS: APPEARANCE CLEAR (CLEAR); BILIRUBIN NEGATIVE (NEGATIVE); COLOR YELLOW (YELLOW); GLUCOSE NEGATIVE (NEGATIVE); KETONE NEGATIVE (NEGATIVE); NITRITE NEGATIVE (NEGATIVE); PROTEIN 1+ mg/dL (NEGATIVE); UROBILINOGEN NORMAL (NORMAL)
[2017-08-31 19:53] LABS: BACTERIA MANY /hpf (NONE SEEN); RED CELLS - URINE 0-5 /hpf (0-5)
[2017-08-31 20:44] LABS: ALBUMIN 2.5 g/dL (3.4-5.0); ALKALINE PHOSPHATASE 135 U/L (46-116); BILIRUBIN - TOTAL 0.52 mg/dL (0.2-1.3); CALC OSMOLALITY 276 mosm/kg (275-300); CALCIUM 8.8 mg/dL (8.5-10.1); CARBON DIOXIDE 25.5 mmol/L (21.0-32.0); CHLORIDE - SERUM 100 mmol/L (98-107); CREATININE - SERUM 1.2 mg/dL (0.6-1.3); GLUCOSE 106 mg/dL (74-106); POTASSIUM - SERUM 4.7 mmol/L (3.5-5.1); PROTEIN - SERUM 7.6 g/dL (6.4-8.2); SODIUM 136 mmol/L (136-145); UREA NITROGEN 26 mg/dL (7-18); eGFR NON AFRICAN AMERICAN 45 mL/min (90-120)
[2017-08-31 20:47] LABS: ALT (SGPT) 2 U/L (10-68)
[2017-08-31 20:54] LABS: CREATINE KINASE 23 UL (21-215); LIPASE 146 U/L (73-393); PRO BNP 1311 pg/mL (0-450)
[2017-08-31 20:55] LABS: TROPONIN-I < 0.017 ng/mL (0.000-0.060)
[2017-08-31 20:58] LABS: BASOPHILS 0.1 % (0-2); EOSINOPHILS 0.1 % (0-7); HEMATOCRIT 40.5 % (36.0-48.0); IMMATURE GRANULOCYTES 0.4 % (0-5); LYMPHOCYTES 5.7 % (15-50); MCH 29.4 pg (26.0-34.0); MCHC 32.1 g/dL (31.0-37.0); MCV 91.6 fL (80.0-100.0); MEAN PLATELET VOLUME 11.3 fL (7.4-10.4); NEUTROPHILS 84.7 % (40-80); PLATELET COUNT 303 10x3/uL (130-400); RBC 4.42 10x6/uL (4.00-5.40); RDW 14.2 % (11.5-14.5); WBC 19.9 10x3/uL (4.8-10.8)
[2017-09-01 01:44] VITALS: BP 143/73
[2017-09-01 04:06] VITALS: BP 143/73; BMI 20.1
[2017-09-01 05:40] VITALS: BP 156/67
[2017-09-01 12:02] VITALS: BP 142/70
[2017-09-01 14:21] VITALS: Ht 172.7 cm; Wt 66.0 kg
[2017-09-01 15:37] VITALS: BP 159/81
[2017-09-01 21:18] VITALS: BP 140/72
[2017-09-02 04:39] LABS: BASOPHILS 0.1 % (0-2); EOSINOPHILS 0.2 % (0-7); HEMATOCRIT 39.8 % (36.0-48.0); IMMATURE GRANULOCYTES 0.5 % (0-5); MCH 29.8 pg (26.0-34.0); MCHC 32.7 g/dL (31.0-37.0); MCV 91.3 fL (80.0-100.0); MEAN PLATELET VOLUME 10.1 fL (7.4-10.4); MONOCYTES 8.4 % (2-11); NEUTROPHILS 84.8 % (40-80); PLATELET COUNT 438 10x3/uL (130-400); RBC 4.36 10x6/uL (4.00-5.40); RDW 14.2 % (11.5-14.5); WBC 22.2 10x3/uL (4.8-10.8)
[2017-09-02 04:55] LABS: INR 1.13 (0.85-1.17); PROTIME 14.1 SECONDS (11.6-15.0)
[2017-09-02 04:58] LABS: ALBUMIN 2.3 g/dL (3.4-5.0); BILIRUBIN - TOTAL 0.5 mg/dL (0.2-1.3); CALCIUM 8.8 mg/dL (8.5-10.1); CARBON DIOXIDE 26.8 mmol/L (21.0-32.0); CREATININE - SERUM 1.1 mg/dL (0.6-1.3); PROTEIN - SERUM 7.9 g/dL (6.4-8.2)
[2017-09-02 05:00] LABS: POTASSIUM - SERUM 3.8 mmol/L (3.5-5.1)
[2017-09-02 06:37] VITALS: BP 146/78
[2017-09-02 08:21] VITALS: BP 108/66
[2017-09-02 10:43] VITALS: BP 114/72
[2017-09-02 14:55] VITALS: BP 118/71
[2017-09-02 19:00] VITALS: BP 151/81
[2017-09-03] VITALS: BP 138/78
[2017-09-03 03:36] LABS: BASOPHILS 0.1 % (0-2); EOSINOPHILS 0.5 % (0-7); HEMATOCRIT 37.4 % (36.0-48.0); HEMOGLOBIN 11.8 g/dL (12-16); IMMATURE GRANULOCYTES 0.3 % (0-5); LYMPHOCYTES 5.4 % (15-50); MCH 29.1 pg (26.0-34.0); MCHC 31.6 g/dL (31.0-37.0); MCV 92.1 fL (80.0-100.0); MEAN PLATELET VOLUME 9.3 fL (7.4-10.4); MONOCYTES 9.9 % (2-11); NEUTROPHILS 83.8 % (40-80); RBC 4.06 10x6/uL (4.00-5.40); RDW 14.3 % (11.5-14.5)
[2017-09-03 03:37] LABS: PLATELET COUNT 330 10x3/uL (130-400); WBC 13.6 10x3/uL (4.8-10.8)
[2017-09-03 03:43] LABS: INR 1.13 (0.85-1.17); PROTIME 14.1 SECONDS (11.6-15.0)
[2017-09-03 04:00] VITALS: BP 146/81
[2017-09-03 04:11] LABS: ANION GAP 10.5 mmol/L (8-16); BILIRUBIN - TOTAL 0.25 mg/dL (0.2-1.3); CALCIUM 8.4 mg/dL (8.5-10.1); CARBON DIOXIDE 28.3 mmol/L (21.0-32.0); CREATININE - SERUM 1.1 mg/dL (0.6-1.3); POTASSIUM - SERUM 3.8 mmol/L (3.5-5.1); PROTEIN - SERUM 6.9 g/dL (6.4-8.2)
[2017-09-03 08:29] VITALS: BP 162/80
[2017-09-03 11:09] VITALS: BP 156/72
[2017-09-03 14:49] VITALS: BP 146/70
[2017-09-03 20:30] VITALS: BP 157/86
[2017-09-04 00:30] VITALS: BP 163/89
[2017-09-04 04:00] VITALS: BP 168/083
[2017-09-04 04:42] LABS: BASOPHILS 0.1 % (0-2); EOSINOPHILS 0.8 % (0-7); HEMATOCRIT 38.4 % (36.0-48.0); IMMATURE GRANULOCYTES 0.2 % (0-5); LYMPHOCYTES 9.4 % (15-50); MCH 29.1 pg (26.0-34.0); MCHC 31.3 g/dL (31.0-37.0); MEAN PLATELET VOLUME 10.1 fL (7.4-10.4); MONOCYTES 12.7 % (2-11); NEUTROPHILS 76.8 % (40-80); PLATELET COUNT 351 10x3/uL (130-400); RBC 4.13 10x6/uL (4.00-5.40); RDW 13.9 % (11.5-14.5)
[2017-09-04 04:57] LABS: ALBUMIN 1.9 g/dL (3.4-5.0); ANION GAP 8.5 mmol/L (8-16); BILIRUBIN - TOTAL 0.22 mg/dL (0.2-1.3); CALCIUM 8.2 mg/dL (8.5-10.1); CARBON DIOXIDE 30.8 mmol/L (21.0-32.0); CREATININE - SERUM 0.9 mg/dL (0.6-1.3); POTASSIUM - SERUM 3.3 mmol/L (3.5-5.1); PROTEIN - SERUM 6.6 g/dL (6.4-8.2)
[2017-09-04 07:50] VITALS: BP 167/90
[2017-09-04 11:47] VITALS: BP 165/87
[2017-09-04 11:57] LABS: APPEARANCE HAZY (CLEAR); BILIRUBIN NEGATIVE (NEGATIVE); COLOR YELLOW (YELLOW); GLUCOSE NEGATIVE (NEGATIVE); KETONE SMALL mg/dL (NEGATIVE); NITRITE NEGATIVE (NEGATIVE); PROTEIN 2+ mg/dL (NEGATIVE); UROBILINOGEN NORMAL (NORMAL)
[2017-09-04 12:02] LABS: BACTERIA MODERATE /hpf (NONE SEEN); RED CELLS - URINE 0-5 /hpf (0-5)
[2017-09-04 12:03] LABS: GRANULAR CAST 0-5 /lpf (NONE SEEN); MUCUS <1+ /lpf (NONE SEEN)
[2017-09-04 12:10] LABS: EPITHELIAL CELL CAST OCC /lpf (NONE SEEN)
[2017-09-04 15:37] VITALS: BP 171/96
[2017-09-04 19:00] VITALS: BP 173/89
[2017-09-05] VITALS (10 sets, daily range): BP systolic 128–186; BP diastolic 72–94
[2017-09-05 04:12] LABS: BASOPHILS 0.1 % (0-2); EOSINOPHILS 1.3 % (0-7); HEMATOCRIT 37.5 % (36.0-48.0); HEMOGLOBIN 11.8 g/dL (12-16); IMMATURE GRANULOCYTES 0.4 % (0-5); LYMPHOCYTES 10.2 % (15-50); MCH 29.5 pg (26.0-34.0); MCHC 31.5 g/dL (31.0-37.0); MCV 93.8 fL (80.0-100.0); MEAN PLATELET VOLUME 9.8 fL (7.4-10.4); MONOCYTES 14.5 % (2-11); NEUTROPHILS 73.5 % (40-80); PLATELET COUNT 345 10x3/uL (130-400); RDW 13.8 % (11.5-14.5); WBC 13.5 10x3/uL (4.8-10.8)
[2017-09-05 04:37] LABS: ALBUMIN 1.9 g/dL (3.4-5.0); ANION GAP 8.4 mmol/L (8-16); BILIRUBIN - TOTAL 0.21 mg/dL (0.2-1.3); CARBON DIOXIDE 29.1 mmol/L (21.0-32.0); CREATININE - SERUM 0.8 mg/dL (0.6-1.3); MAGNESIUM - SERUM 1.4 mg/dL (1.8-2.4); POTASSIUM - SERUM 3.5 mmol/L (3.5-5.1); PROTEIN - SERUM 6.5 g/dL (6.4-8.2)
[2017-09-05 08:36] LABS: INR 1.12 (0.85-1.17)
[2017-09-05 09:18] LABS: ALPHA FETOPROTEIN -(TUMOR MRK) 2.5 ng/mL (0.0-8.3); CEA 1.5 ng/mL (0.0-4.7)
[2017-09-06 01:54] VITALS: BP 145/84
[2017-09-06 04:37] LABS: BASOPHILS 0.2 % (0-2); EOSINOPHILS 2.3 % (0-7); HEMATOCRIT 35.8 % (36.0-48.0); HEMOGLOBIN 11.2 g/dL (12-16); IMMATURE GRANULOCYTES 0.3 % (0-5); LYMPHOCYTES 14.6 % (15-50); MCH 29.2 pg (26.0-34.0); MCHC 31.3 g/dL (31.0-37.0); MCV 93.5 fL (80.0-100.0); MEAN PLATELET VOLUME 9.8 fL (7.4-10.4); MONOCYTES 13.7 % (2-11); NEUTROPHILS 68.9 % (40-80); PLATELET COUNT 320 10x3/uL (130-400); RBC 3.83 10x6/uL (4.00-5.40); RDW 13.8 % (11.5-14.5); WBC 10.3 10x3/uL (4.8-10.8)
[2017-09-06 04:48] LABS: ALBUMIN 1.8 g/dL (3.4-5.0); ALKALINE PHOSPHATASE 96 U/L (46-116); ALT (SGPT) 12 U/L (10-68); BILIRUBIN - TOTAL 0.26 mg/dL (0.2-1.3); CALC OSMOLALITY 276 mosm/kg (275-300); CARBON DIOXIDE 29.1 mmol/L (21.0-32.0); CHLORIDE - SERUM 106 mmol/L (98-107); CREATININE - SERUM 0.7 mg/dL (0.6-1.3); GLUCOSE 107 mg/dL (74-106); MAGNESIUM - SERUM 1.4 mg/dL (1.8-2.4); POTASSIUM - SERUM 3.4 mmol/L (3.5-5.1); PROTEIN - SERUM 6.1 g/dL (6.4-8.2); SODIUM 139 mmol/L (136-145); eGFR NON AFRICAN AMERICAN 85 mL/min (90-120)
[2017-09-06 04:53] LABS: UREA NITROGEN 11 mg/dL (7-18)
[2017-09-06 05:53] VITALS: BP 146/89
[2017-09-06 08:11] VITALS: BP 136/82
[2017-09-06 11:44] VITALS: BP 133/80
== END 2017-09-06 12:45 | disposition home or self-care (01) | DRG 194 ==
LOC: D.ER 19:04 → D.M2 21:36 → D.SDCHOLD 21:36 → D.M2 22:38 → D.SDCHOLD 09-01 16:42 → D.M2 09-01 16:45 → D.SDCHOLD 09-01 18:53 → D.M2 09-01 18:54
PROVIDERS: Emergency Medicine; Family Medicine; Internal Medicine Gastroenterology; Specialist
PROC: 0FB03ZX Excision of Liver, Percutaneous Approach, Diagnostic (ICD-10-PCS; principal; 2017-09-05 09:30)
DX: J18.9 Pneumonia, unspecified organism (principal); N39.0 Urinary tract infection, site not specified; J98.11 Atelectasis; I10 Essential (primary) hypertension; Z66 Do not resuscitate; E87.6 Hypokalemia; F03.90 Unspecified dementia, unspecified severity, without behavioral disturbance, psychotic disturbance, mood disturbance, and anxiety; I11.0 Hypertensive heart disease with heart failure; I50.9 Heart failure, unspecified; W07.XXXA Fall from chair, initial encounter; I95.9 Hypotension, unspecified; R16.0 Hepatomegaly, not elsewhere classified; G40.909 Epilepsy, unspecified, not intractable, without status epilepticus